=== PATIENT | male | born 1960 | race African-American/Black ===

== ENCOUNTER 2017-08-03 14:38 | Inpatient (IN) | payer OTHER ==
[2017-08-03 15:07] VITALS: BMI 21.6
--- NOTE | 2017-08-03 19:20 | HP ---
COWS - Scale Resting Pulse: 2= [place] 101-120 Sweatin= Chills/Flushing Restless Observation: 1= Difficult to Sit Still Pupil Size: 0= Normal to Room Light Bone or Joint Aches: 2= Severe Diffuse Aches Runny Nose/ Eye Tearin= Nasal Congestion GI Upset > 30mins: 2= Nausea/Diarrhea Tremor Observation: 2= Slight Tremor Visible Yawning Observation: 0= None Anxiety or Irritability: 2=Irritable/Anxious Goose Flesh Skin: 0=Smooth Skin COWS Score: 13 Admission [facility] Chief Complaint: WITHDRAWAL SX Allergies/Adverse Reactions: Allergies Allergy/AdvReac Type Severity Reaction Status Date / Time No Known Allergies Allergy Verified 06/12/17 18:44 History of Present Illness: 56 YEARS OLD MALE WITH LONG HISTORY OF HEROIN NICOTINE DEPENDENCE HAS DEPRESSION IS ADMITTED TO DETOX Exam Limitations: No Limitations - Ebola screening Have you traveled outside of the country in the last 21 days: No (N) Have you had contact with anyone from an Ebola affected area: No Have you been sick,other than usual withdrawal symptoms: No Do you have a fever: No - Review of Systems Constitutional: Loss of Appetite, Changes in sleep, Unintentional Wgt. Loss, Unexplained wgt Loss EENT: reports: No Symptoms Reported Respiratory: reports: No Symptoms reported Cardiac: reports: No Symptoms Reported GI: reports: Diarrhea, Nausea, Poor Appetite, Poor Fluid Intake, Indigestion, Abdominal cramping : reports: No Symptoms Reported Musculoskeletal: reports: Back Pain, Joint Pain, Muscle Pain, Neck Pain Integumentary: reports: Dryness Neuro: reports: Tremors Endocrine: reports: No Symptoms Reported Hematology: reports: No Symptoms Reported Psychiatric: reports: Judgement Intact, Orientated x3, Depressed Other Systems: Reviewed and Negative Patient History - Patient Medical History Hx Anemia: No Hx Asthma: No Hx Chronic Obstructive Pulmonary Disease (COPD): No Hx Cancer: No Hx Cardiac Disorders: No Hx Congestive Heart Failure: No Hx Hypertension: No Hx Hypercholesterolemia: No Hx Pacemaker: No HX Cerebrovascular Accident: No Hx Seizures: No Hx Dementia: No Hx Diabetes: No Hx Gastrointestinal Disorders: Yes Hx Liver Disease: No Hx Genitourinary Disorders: No Hx Sexually Transmitted Disorders: Yes (Gonorrhea 20 yrs ago, treated) Hx Renal Disease (ESRD): No Hx Thyroid Disease: No Hx Human Immunodeficiency Virus (HIV): No Hx Hepatitis C: Yes (Treated with Harvoni x 3 months) Hx Depression: Yes Hx Suicide Attempt: No Hx Bipolar Disorder: No Hx Schizophrenia: No - Patient Surgical History Past Surgical History: No Hx Neurologic Surgery: No Hx Cataract Extraction: No Hx Cardiac Surgery: No Hx Lung Surgery: No Hx Breast Surgery: No Hx Breast Biopsy: No Hx Abdominal Surgery: No Hx Appendectomy: No Hx Cholecystectomy: No Hx Genitourinary Surgery: No Hx Orthopedic Surgery: No - PPD History Previous Implant?: Yes Documented Results: Negative w/proof Implanted On Prior [facility] Admission?: Yes Date: 06/14/17 Results: 0mm PPD to be Administered?: No - Smoking Cessation Smoking history: Current every day smoker Have you smoked in the past 12 months: Yes Aproximately how many cigarettes per day: 15 Cigars Per Day: 0 Hx Chewing Tobacco Use: No Initiated information on smoking cessation: Yes 'Breaking Loose' booklet given: 08/03/17 - Substance & Tx. History Hx Alcohol Use: No Hx Substance Use: Yes Substance Use Type: Opiates Hx Substance Use Treatment: Yes (06/2017 [facility]) - Substances Abused Heroin Route: Inhalation Frequency: Daily Amount used: 10-15 bags Age of first use: 54 Date of Last Use: 08/03/17 Family Disease History - Family Disease History Family Disease History: [place]: Grandparent (Lung) Admission Physical Exam BHS - Vital Signs Vital Signs: Vital Signs - 24 hr 08/03/17 08/03/17 15:05 19:13 Temperature 97.8 F 97.9 F Pulse Rate 106 H 96 H Respiratory 18 18 Rate Blood Pressure 140/95 129/95 - Physical General Appearance: Yes: Appropriately Dressed, Mild Distress, Thin, Tremorous, Irritable, Sweating, Anxious HEENTM: Yes: Hearing grossly Normal, Normal ENT Inspection, Normocephalic, Normal Voice Respiratory: Yes: Chest Non-Tender, Lungs Clear, Normal Breath Sounds, No Respiratory Distress, No Accessory Muscle Use Neck: Yes: Supple, Trachea in good position Breast: Yes: Breasts Symetrical Cardiology: Yes: Regular Rhythm, S1, S2, Tachycardia Abdominal: Yes: Non Tender, Soft, Increased Bowel Sounds Genitourinary: Yes: Within Normal Limits Back: Yes: Normal Inspection Musculoskeletal: Yes: full range of Motion, Gait Steady, Back pain, Muscle Pain Extremities: Yes: Normal Inspection, Normal Range of Motion, Non-Tender, Tremors Neurological: Yes: Fully Oriented, Alert, Motor Strength 5/5, Normal Response, Depressed Affect Integumentary: Yes: Dry, Warm Lymphatic: Yes: Within Normal Limits - Diagnostic (1) Weight loss Current Visit: Yes Status: Acute (2) Nicotine dependence Current Visit: Yes Status: Acute Qualifiers: Nicotine product type: cigarettes Substance use status: in withdrawal Qualified Code(s): F17.213 - Nicotine dependence, cigarettes, with withdrawal (3) Depression (emotion) Current Visit: Yes Status: Suspected Qualifiers: Depression Type: dysthymia Qualified Code(s): F34.1 - Dysthymic disorder (4) Opioid dependence with withdrawal Current Visit: Yes Status: Acute (5) Hx of hepatitis C Current Visit: Yes Status: Resolved Cleared for Admission [facility] - Detox or Rehab [facility] Level of Care: Medically Managed Detox Regimen/Protocol: Methadone [facility] Breath Alcohol Content Breath Alcohol Content: 0 Urine Drug Screen - Control Is Test Valid: Yes - Results Drug Screen Negative: No Urine Drug Screen Results: OPI-Opiates, TCA-Tricyclic Antidepress
[2017-08-03] MEDS ORDERED: P-EPHED 60MG/TRIPROLIDI 2.5MG TABLET PO PRN (19:23)
[2017-08-03] MEDS ORDERED: guaiFENesin/D-METHORPHAN HB 10 ML UNIT-DOSE CUPS PO PRN (19:23)
[2017-08-03] MEDS ORDERED: LOPERAMIDE HCL 2 MG CAPSULE PO PRN (19:23)
[2017-08-03] MEDS ORDERED: METHADONE HCL 10 MG TABLET (FOR DETOX USE ONLY) PO ONE ×2 (19:23→23:00)
[2017-08-03] MEDS ORDERED: MAGNESIUM HYDROX 2400MG/30ML ORAL SUSPENSION 30 ML CUP PO PRN (19:23)
[2017-08-03] MEDS ORDERED: MENTHOL/PHENOL 1 EACH UD MM PRN (19:23)
[2017-08-03] MEDS ORDERED: MAG HYDROX/AL HYDROX/SIMETH 30 ML UNIT-DOSE CUP PO PRN (19:23)
[2017-08-03] MEDS ORDERED: MAGNESIUM CITRATE 300 ML BOTTLE PO PRN (19:23)
[2017-08-03] MEDS: diazePAM 5 MG TABLET PO PRN (19:52)
[2017-08-03 22:08] LABS: URINE APPEARANCE SLCLOUDY; URINE BILIRUBIN NEGATIVE (NEGATIVE); URINE BLOOD NEGATIVE (NEGATIVE); URINE COLOR AMBER; URINE GLUCOSE (UA) NEGATIVE (NEGATIVE); URINE KETONE 1+ (NEGATIVE); URINE LEUK ESTERASE NEGATIVE (NEGATIVE); URINE NITRITE NEGATIVE (NEGATIVE)
[2017-08-03] MEDS: RANITIDINE HCL 150 MG TABLET (FP) PO SCH (22:08)
[2017-08-03] MEDS: THIAMINE HCL 100 MG TABLET (FP) PO SCH (22:08)
[2017-08-03] MEDS: NICOTINE POLACRILEX 4 MG GUM BC PRN (22:09)
[2017-08-03] MEDS: MINERAL OIL/PETROLAT/WATER TOPICAL CREAM 113 GM JAR TP SCH (22:09)
[2017-08-03 22:48] LABS: URINE PROTEIN 1+ (NEGATIVE)
[2017-08-03 23:12] LABS: EPI CELLS RARE /HPF (FEW); URINE BACTERIA RARE /hpf (NONE SEEN); URINE MUCUS MANY
[2017-08-04] MEDS: NICOTINE POLACRILEX 4 MG GUM BC PRN ×4 (06:55→19:43)
[2017-08-04] MEDS ORDERED: METHADONE HCL 10 MG TABLET (FOR DETOX USE ONLY) PO ONE (10:00)
[2017-08-04 10:07] LABS: CHLORIDE 103 mmol/L (98-107); POTASSIUM 3.7 mmol/L (3.5-5.1); SODIUM 136 mmol/L (136-145)
[2017-08-04] MEDS: NICOTINE 21 MG/24 HOURS TOPICAL PATCH TD SCH (10:10)
[2017-08-04] MEDS: RANITIDINE HCL 150 MG TABLET (FP) PO SCH ×2 (10:10→22:17)
[2017-08-04] MEDS: PRENATAL VITAMINS W/ FOLIC ACID TABLET (FP) PO SCH (10:10)
[2017-08-04 10:24] LABS: ALBUMIN 3.4 g/dl (3.4-5.0); ALK PHOS 96 U/L (45-117); ANION GAP 7 (8-16); BILIRUBIN,TOTAL 0.4 mg/dL (0.2-1.0); BLOOD UREA NITROGEN 17 mg/dL (7-18); CALCIUM 8.5 mg/dL (8.5-10.1); CO2 26 mmol/L (21-32); CREATININE 0.8 mg/dL (0.7-1.3); GLUCOSE,RANDOM 118 mg/dL (74-106); SGOT/AST 14 U/L (15-37); SGPT/ALT 25 U/L (12-78); TOT PROT 7.1 g/dl (6.4-8.2)
--- NOTE | 2017-08-04 12:24 | CONSULT ---
[facility] Psychiatric Consult - Data Date of interview: 08/04/17 Admission source: [facility] Identifying data: Pt. is a 57 year old male, single, without kids, disabled, on SSD and SSI. This is patient's one of multiple admission to [facility]. Pt. admitted to for heroin dependence. Substance Abuse History: Heroin: First used: 56 Frequency: daily Amount: 1 bundle. Cigarette: Current every day smoker. 1 pack per day. Medical History: Hep C ( treated with Harvoni x3 months) Psychiatric History: Pt. reports h/o two psychiatric hospitalizations. Most recently hospitalized at a hospital in [place]. States he was diagnosed with severe depression. Pt. reports seeing a psychiatrist "on and off for a couple of years". Pt. has been prescribed the following medications: depakote, trazodone, wellbutrin, and mirtazapine. Pt. reports a h/o medication nonadherence. Claims he has not taken medications in months because they make him too sedated and has had "wet dreams" because of them. Pt. is requesting trazodone 50mg for insomnia. States his provider prescribed him 150mg of trazodone qhs and it made him feel sluggish in the morning. Pharmacy claims reviewed and verified. Pt. denies h/o suicide attempts. Pt. denies suicidal and homicidal ideation. Physical/Sexual Abuse/Trauma History: Denies. Additional Comment: Urine Drug Screen Results: OPI-Opiates, TCA-Tricyclic Antidepress Mental Status Exam - Mental Status Exam Alert and Oriented to: Time, Place, Person Cognitive Function: Good Patient Appearance: Well Groomed Mood: Hopeful Affect: Mood Congruent Patient Behavior: Talkative, Appropriate, Cooperative Speech Pattern: Clear, Appropriate Voice Loudness: Normal Thought Process: Goal Oriented Thought Disorder: Not Present Hallucinations: Denies Suicidal Ideation: Denies Homicidal Ideation: Denies Insight/Judgement: Poor Sleep: Poorly Appetite: Poor Muscle strength/Tone: Normal Gait/Station: Normal Psychiatric Findings - Problem List ([place] 1, 2,3) (1) Opioid dependence with withdrawal Current Visit: Yes Status: Acute (2) MDD (major depressive disorder) Current Visit: Yes Status: Chronic (3) Nicotine dependence Current Visit: Yes Status: Chronic Qualifiers: Nicotine product type: cigarettes Substance use status: in withdrawal Qualified Code(s): F17.213 - Nicotine dependence, cigarettes, with withdrawal (4) Insomnia Current Visit: Yes Status: Acute - Initial Treatment Plan Initial Treatment Plan: Psychoeducation provided. Detoxification in progress. Pharmacy claims reviewed. Trazodone 50mg qhs ordered for insomnia. Pt. reports favorable effect from taking trazodone. Benefits and side effects discussed ( priapism). Verbal consent given. Will continue to monitor.
--- NOTE | 2017-08-04 13:12 | EKG ---
Test Reason : Blood Pressure : / mmHG Vent. Rate : 075 BPM Atrial Rate : 075 BPM P-R Int : 140 ms QRS Dur : 078 ms QT Int : 364 ms P-R-T Axes : 069 067 047 degrees QTc Int : 406 ms NORMAL SINUS RHYTHM POSSIBLE LEFT ATRIAL ENLARGEMENT BORDERLINE ECG WHEN COMPARED WITH ECG OF 13-JUN-2017 07:01, VENT. RATE HAS INCREASED BY 26 BPM Confirmed by HAYDEN BRAUN MD ([id number]) on 08/04/2017 1:12:20 PM Referred By: DHAVAL GOOD Confirmed By:HAYDEN BRAUN MD
[2017-08-04] MEDS: diazePAM 5 MG TABLET PO PRN ×2 (13:48→22:16)
[2017-08-04 13:51] LABS: HEMOGLOBIN 12.7 GM/dL (11.7-16.9); MCHC 31.5 g/dl (32.0-35.9); MEAN PLT VOLUME 10.5 fl (7.5-11.1)
[2017-08-04 13:57] LABS: HEMATOCRIT 40.2 % (35.4-49); MCH 31.6 pg (25.7-33.7); MEAN CELL VOLUME 100.2 fl (80-96); PLATELET COUNT 237 K/MM3 (134-434); RBC 4.02 M/mm3 (4.00-5.60)
--- NOTE | 2017-08-04 16:06 | PN ---
BHS COWS - Scale Resting Pulse: 0= [place] 80 or Below Sweatin= Chills/Flushing Restless Observation: 3= Extraneous Movement Pupil Size: 0= Normal to Room Light Bone or Joint Aches: 2= Severe Diffuse Aches Runny Nose/ Eye Tearin= Runny Nose/Eyes GI Upset > 30mins: 1= Stomach Cramp Tremor Observation of Outstretched Hands: 2= Slight Tremor Visible Yawning Observation: 1= 1-2x During Session Anxiety or Irritability: 2=Irritable/Anxious Goose Flesh Skin: 0=Smooth Skin COWS Score: 14 BHS Progress Note (SOAP) Subjective: Sweating, anxious, interrupted sleep Objective: 08/04/17 16:04 Last Vital Signs Temp Pulse Resp BP Pulse Ox 97.3 F L 68 18 118/78 08/04/17 13:57 08/04/17 13:57 08/04/17 13:57 08/04/17 13:57 Laboratory Tests 08/03/17 08/04/17 08/04/17 21:50 07:30 07:30 WBC 11.0 H D RBC 4.02 Hgb 12.7 Hct 40.2 MCV 100.2 H MCH 31.6 MCHC 31.5 L RDW 13.0 Plt Count 237 MPV 10.5 D Sodium 136 Potassium 3.7 D Chloride 103 Carbon Dioxide 26 Anion Gap 7 L BUN 17 Creatinine 0.8 Creat Clearance w eGFR > 60 Random Glucose 118 H D Calcium 8.5 Total Bilirubin 0.4 AST 14 L D ALT 25 D Alkaline Phosphatase 96 D Total Protein 7.1 Albumin 3.4 Urine Color Aster Urine Appearance Slcloudy Urine pH 5.0 Ur Specific [place] 1.034 Urine Protein 1+ H Urine Glucose (UA) Negative Urine Ketones 1+ H Urine Blood Negative Urine Nitrite Negative Urine Bilirubin Negative Urine Urobilinogen 2.0 Ur Leukocyte Esterase Negative Urine WBC (Auto) 3 Urine RBC (Auto) 5 Ur Epithelial Cells Rare Urine Bacteria Rare Urine Mucus Many RPR Titer 08/04/17 07:30 WBC RBC Hgb Hct MCV MCH MCHC RDW Plt Count MPV Sodium Potassium Chloride Carbon Dioxide Anion Gap BUN Creatinine Creat Clearance w eGFR Random Glucose Calcium Total Bilirubin AST ALT Alkaline Phosphatase Total Protein Albumin Urine Color Urine Appearance Urine pH Ur Specific [place] Urine Protein Urine Glucose (UA) Urine Ketones Urine Blood Urine Nitrite Urine Bilirubin Urine Urobilinogen Ur Leukocyte Esterase Urine WBC (Auto) Urine RBC (Auto) Ur Epithelial Cells Urine Bacteria Urine Mucus RPR Titer Nonreactive Labs noted: abnormal UA Assessment: 08/04/17 16:05 Withdrawal symptoms Noted with abnormal UA Plan: Continue detox Abnormal UA: encouraged to drink lots of water, repeat UA
[2017-08-04] MEDS ORDERED: traZODone HCL 50 MG TABLET (FP) PO SCH (22:00)
[2017-08-04] MEDS: THIAMINE HCL 100 MG TABLET (FP) PO SCH (22:16)
[2017-08-04] MEDS: MINERAL OIL/PETROLAT/WATER TOPICAL CREAM 113 GM JAR TP SCH (23:07)
[2017-08-05] MEDS: NICOTINE POLACRILEX 4 MG GUM BC PRN ×4 (07:23→17:21)
[2017-08-05 09:50] LABS: BASO % 0.4 % (0-2.0); HEMATOCRIT 39.2 % (35.4-49); HEMOGLOBIN 12.5 GM/dL (11.7-16.9); MCH 31.7 pg (25.7-33.7); MCHC 31.8 g/dl (32.0-35.9); MEAN CELL VOLUME 99.6 fl (80-96); MEAN PLT VOLUME 9.7 fl (7.5-11.1); MONO % 13.7 % (3.8-10.2); NEUT % 37.9 % (42.8-82.8); PLATELET COUNT 231 K/MM3 (134-434); RBC 3.94 M/mm3 (4.00-5.60); WHITE BLOOD COUNT 6.5 K/mm3 (4.0-10.0)
[2017-08-05] MEDS ORDERED: METHADONE HCL 5 MG TABLET (FOR DETOX USE ONLY) PO ONE (10:00)
[2017-08-05] MEDS: NICOTINE 21 MG/24 HOURS TOPICAL PATCH TD SCH (10:33)
[2017-08-05] MEDS: PRENATAL VITAMINS W/ FOLIC ACID TABLET (FP) PO SCH (10:33)
[2017-08-05] MEDS: RANITIDINE HCL 150 MG TABLET (FP) PO SCH ×2 (10:33→23:33)
[2017-08-05] MEDS: diazePAM 5 MG TABLET PO PRN ×2 (12:42→17:20)
[2017-08-05 13:14] LABS: URINE APPEARANCE SLCLOUDY; URINE BILIRUBIN NEGATIVE (NEGATIVE); URINE BLOOD NEGATIVE (NEGATIVE); URINE COLOR YELLOW; URINE GLUCOSE (UA) NEGATIVE (NEGATIVE); URINE KETONE NEGATIVE (NEGATIVE); URINE LEUK ESTERASE NEGATIVE (NEGATIVE); URINE NITRITE NEGATIVE (NEGATIVE); URINE PROTEIN NEGATIVE (NEGATIVE); URINE UROBILINOGEN NEGATIVE mg/dL (0.2-1.0)
--- NOTE | 2017-08-05 15:01 | PN ---
BHS COWS - Scale Resting Pulse: 0= [place] 80 or Below Sweatin= Chills/Flushing Restless Observation: 3= Extraneous Movement Pupil Size: 0= Normal to Room Light Bone or Joint Aches: 2= Severe Diffuse Aches Runny Nose/ Eye Tearin= Runny Nose/Eyes GI Upset > 30mins: 1= Stomach Cramp Tremor Observation of Outstretched Hands: 2= Slight Tremor Visible Yawning Observation: 1= 1-2x During Session Anxiety or Irritability: 2=Irritable/Anxious Goose Flesh Skin: 0=Smooth Skin COWS Score: 14 S Progress Note (SOAP) Subjective: Anxious, sweats, chills, increased drowsiness from trazodone, patient requesting to have trazodone d/c because it makes him too drowsy. Objective: 08/05/17 14:59 Last Vital Signs Temp Pulse Resp BP Pulse Ox 97.9 F 66 18 127/77 08/05/17 14:42 08/05/17 14:42 08/05/17 14:42 08/05/17 14:42 Laboratory Tests 08/03/17 08/04/17 08/04/17 21:50 07:30 07:30 WBC 11.0 H D RBC 4.02 Hgb 12.7 Hct 40.2 MCV 100.2 H MCH 31.6 MCHC 31.5 L RDW 13.0 Plt Count 237 MPV 10.5 D Neutrophils % Lymphocytes % Monocytes % Eosinophils % Basophils % Sodium 136 Potassium 3.7 D Chloride 103 Carbon Dioxide 26 Anion Gap 7 L BUN 17 Creatinine 0.8 Creat Clearance w eGFR > 60 Random Glucose 118 H D Calcium 8.5 Total Bilirubin 0.4 AST 14 L D ALT 25 D Alkaline Phosphatase 96 D Total Protein 7.1 Albumin 3.4 Urine Color Aster Urine Appearance Slcloudy Urine pH 5.0 Ur Specific [place] 1.034 Urine Protein 1+ H Urine Glucose (UA) Negative Urine Ketones 1+ H Urine Blood Negative Urine Nitrite Negative Urine Bilirubin Negative Urine Urobilinogen 2.0 Ur Leukocyte Esterase Negative Urine WBC (Auto) 3 Urine RBC (Auto) 5 Ur Epithelial Cells Rare Urine Bacteria Rare Urine Mucus Many RPR Titer 08/04/17 08/05/17 08/05/17 07:30 07:30 12:20 WBC 6.5 D RBC 3.94 L Hgb 12.5 Hct 39.2 MCV 99.6 H MCH 31.7 MCHC 31.8 L RDW 13.0 Plt Count 231 MPV 9.7 Neutrophils % 37.9 L Lymphocytes % 43.0 H Monocytes % 13.7 H Eosinophils % 5.0 H Basophils % 0.4 Sodium Potassium Chloride Carbon Dioxide Anion Gap BUN Creatinine Creat Clearance w eGFR Random Glucose Calcium Total Bilirubin AST ALT Alkaline Phosphatase Total Protein Albumin Urine Color Yellow Urine Appearance Slcloudy Urine pH 5.0 Ur Specific [place] 1.018 Urine Protein Negative Urine Glucose (UA) Negative Urine Ketones Negative Urine Blood Negative Urine Nitrite Negative Urine Bilirubin Negative Urine Urobilinogen Negative Ur Leukocyte Esterase Urine WBC (Auto) Urine RBC (Auto) Ur Epithelial Cells Urine Bacteria Urine Mucus RPR Titer Nonreactive Labs noted Assessment: 08/05/17 15:00 Withdrawal symptoms Plan: Continue detox Encouraged to drink lots of water
--- NOTE | 2017-08-05 16:44 | PN ---
Psychiatric Progress Note Vital Signs: Vital Signs Period Temp Pulse Resp BP Sys/Pollock Pulse Ox Last 24 Hr 97.9 F-100.4 F 66-76 18-18 121-132/60-79 Date of Session: 08/05/17 Chief Complaint:: "The trazodone made me feel sluggish. I would like another sleep aid." HPI: Pt. admitted to for heroin dependence. ROS: Pt. alert and oriented. Pt. visible on unit. Current Medications: Active Medications Generic Name Dose Route Start Last Admin Trade Name Freq PRN Reason Stop Dose Admin Acetaminophen 650 mg 08/03/17 19:23 Tylenol - PO Q4H PRN FEVER OR PAIN Al Hydroxide/Mg Hydroxide 30 ml 08/03/17 19:23 Mylanta Oral Suspension - PO Q6H PRN DYSPEPSIA Diazepam 10 mg 08/03/17 19:23 08/05/17 12:42 Valium - PO 08/06/17 19:22 10 mg Q4H PRN Administration WITHDRAWAL(CONT SUBST) Eucalyptus/Menthol/Phenol/Sorbitol 1 each 08/03/17 19:23 Cepastat Lozenge - MM Q4H PRN SORE THROAT Guaifenesin 10 ml 08/03/17 19:23 Robitussin Dm - PO Q6H PRN COUGH Loperamide HCl 4 mg 08/03/17 19:23 Imodium - PO Q6H PRN DIARRHEA Magnesium Citrate 300 ml 08/03/17 19:23 Citroma - PO Q48H PRN CONSTIPATION Magnesium Hydroxide 30 ml 08/03/17 19:23 Milk Of Magnesia - PO DAILY PRN CONSTIPATION Methadone HCl 5 mg 08/08/17 06:00 Dolophine - PO 08/08/17 06:01 ONCE@0600 ONE Methadone HCl 15 mg 08/06/17 10:00 Dolophine - PO 08/06/17 10:01 ONCE ONE Methadone HCl 10 mg 08/07/17 10:00 Dolophine - PO 08/07/17 10:01 ONCE ONE Multi-Ingredient Lotion 1 applic 08/03/17 22:00 08/04/17 23:07 Eucerin (Small Jar) - TP Not Given HS MARYJANE Nicotine 21 mg 08/04/17 10:00 08/05/17 10:33 Nicoderm Patch - TD Not Given DAILY MARYJANE Nicotine Polacrilex 4 mg 08/03/17 19:23 08/05/17 12:20 Nicorette Gum - BC 4 mg Q2H PRN Administration NICOTINE REPLACEMENT RX Multivit/Folic Acid/Iron 1 tab 08/04/17 10:00 08/05/17 10:33 Vitamins (Sjr) - PO 1 tab DAILY MARYJANE Administration Pseudoephedrine/Triprolidine 1 combo 08/03/17 19:23 Actifed - PO TID PRN NASAL CONGESTION Ranitidine HCl 150 mg 08/03/17 22:00 08/05/17 10:33 Zantac - PO 150 mg BID MARYJANE Administration Thiamine HCl 100 mg 08/03/17 22:00 08/04/17 22:16 Vitamin B1 - PO 100 mg HS MARYJANE Administration Trazodone HCl 50 mg 08/04/17 22:00 08/04/17 22:16 Desyrel - PO 50 mg HS MARYJANE Administration Medication(s) Change(s): Will discontinue trazodone 50mg for insomnia and order ambien 5mg qhs for insomnia. Current Side Effect: No Lab tests ordered: No Lab tests reviewed: Yes Provider note:: Installation Supervisor approached patient concerning psychiatric reconsultation. Patient requesting film writer to discontinue trazodone due to feeling sluggish this morning. Sleep hygiene and psychoeducation provided. Pt. receptive to feedback. Pt. requesting ambien for insomnia. States he has taken it in the past and experienced improved sleep. Will order Ambien 5mg qhs PRN ordered for insomnia. Total face to face time:: 25 Mental Status Exam - Mental Status Exam Alert and Oriented to: Time, Place, Person Cognitive Function: Good Patient Appearance: Well Groomed Mood: Euthymic Affect: Mood Congruent Patient Behavior: Appropriate, Cooperative Speech Pattern: Appropriate Voice Loudness: Normal Thought Process: Goal Oriented Thought Disorder: Not Present Hallucinations: Denies Suicidal Ideation: Denies Homicidal Ideation: Denies Insight/Judgement: Poor Sleep: Poorly Appetite: Fair Muscle strength/Tone: Normal Gait/Station: Normal Psychiatric Treatment Plan - Problem List (1) Opioid dependence with withdrawal Current Visit: Yes (2) MDD (major depressive disorder) Current Visit: Yes (3) Nicotine dependence Current Visit: Yes Qualifiers: Nicotine product type: cigarettes Substance use status: in withdrawal Qualified Code(s): F17.213 - Nicotine dependence, cigarettes, with withdrawal (4) Insomnia Current Visit: Yes
[2017-08-05] MEDS: ACETAMINOPHEN 325 MG TABLET (FP) PO PRN (20:33)
[2017-08-05] MEDS ORDERED: ZOLPIDEM TARTRATE 5 MG TABLET PO PRN (22:00)
[2017-08-05] MEDS: MINERAL OIL/PETROLAT/WATER TOPICAL CREAM 113 GM JAR TP SCH (23:32)
[2017-08-05] MEDS: THIAMINE HCL 100 MG TABLET (FP) PO SCH (23:33)
--- NOTE | 2017-08-05 23:36 | PN ---
S Progress Note Note: PT. ASSESSED ON THE UNIT. HE REPORTS HE FALL AT 700; ROLLED OF THE BED AND HIT HIS LEFT ELBOW. DENIES HEAD INJURY. SLIGHT SWELLING NOTED, TENDERNESS ON PALPATION. SKIN INTACT, NO BRUISING NOTED AND FROM. PLAN: IBU PRN ICE PRN FALL PROTOCOL 2 INITIATED
[2017-08-06] MEDS: NICOTINE POLACRILEX 4 MG GUM BC PRN ×4 (06:01→20:19)
[2017-08-06] MEDS: ACETAMINOPHEN 325 MG TABLET (FP) PO PRN (07:36)
[2017-08-06] MEDS ORDERED: METHADONE HCL 5 MG TABLET (FOR DETOX USE ONLY) PO ONE (10:00)
[2017-08-06] MEDS: PRENATAL VITAMINS W/ FOLIC ACID TABLET (FP) PO SCH (10:14)
[2017-08-06] MEDS: RANITIDINE HCL 150 MG TABLET (FP) PO SCH ×2 (10:14→22:33)
[2017-08-06] MEDS: NICOTINE 21 MG/24 HOURS TOPICAL PATCH TD SCH (10:16)
[2017-08-06] MEDS: diazePAM 5 MG TABLET PO PRN ×2 (12:22→18:05)
--- NOTE | 2017-08-06 16:12 | PN ---
BHS Progress Note (SOAP) Subjective: withdrawal sx Sweats, sleeping problems Objective: 08/06/17 16:11 Vital Signs Temperature 100.6 F H 08/06/17 13:50 Pulse Rate 69 08/06/17 13:50 Respiratory Rate 18 08/06/17 13:50 Blood Pressure 131/77 08/06/17 13:50 O2 Sat by Pulse Oximetry (%) Laboratory Last Values WBC 6.5 K/mm3 (4.0-10.0) D 08/05/17 07:30 RBC 3.94 M/mm3 (4.00-5.60) L 08/05/17 07:30 Hgb 12.5 GM/dL (11.7-16.9) 08/05/17 07:30 Hct 39.2 % (35.4-49) 08/05/17 07:30 MCV 99.6 fl (80-96) H 08/05/17 07:30 MCH 31.7 pg (25.7-33.7) 08/05/17 07:30 MCHC 31.8 g/dl (32.0-35.9) L 08/05/17 07:30 RDW 13.0 % (11.9-15.9) 08/05/17 07:30 Plt Count 231 K/MM3 (134-434) 08/05/17 07:30 MPV 9.7 fl (7.5-11.1) 08/05/17 07:30 Neutrophils % 37.9 % (42.8-82.8) L 08/05/17 07:30 Lymphocytes % 43.0 % (8-40) H 08/05/17 07:30 Monocytes % 13.7 % (3.8-10.2) H 08/05/17 07:30 Eosinophils % 5.0 % (0-4.5) H 08/05/17 07:30 Basophils % 0.4 % (0-2.0) 08/05/17 07:30 Sodium 136 mmol/L (136-145) 08/04/17 07:30 Potassium 3.7 mmol/L (3.5-5.1) D 08/04/17 07:30 Chloride 103 mmol/L (98-107) 08/04/17 07:30 Carbon Dioxide 26 mmol/L (21-32) 08/04/17 07:30 Anion Gap 7 (8-16) L 08/04/17 07:30 BUN 17 mg/dL (7-18) 08/04/17 07:30 Creatinine 0.8 mg/dL (0.7-1.3) 08/04/17 07:30 Creat Clearance w eGFR > 60 (>60) 08/04/17 07:30 Random Glucose 118 mg/dL (74-106) H D 08/04/17 07:30 Calcium 8.5 mg/dL (8.5-10.1) 08/04/17 07:30 Total Bilirubin 0.4 mg/dL (0.2-1.0) 08/04/17 07:30 AST 14 U/L (15-37) L D 08/04/17 07:30 ALT 25 U/L (12-78) D 08/04/17 07:30 Alkaline Phosphatase 96 U/L (45-117) D 08/04/17 07:30 Total Protein 7.1 g/dl (6.4-8.2) 08/04/17 07:30 Albumin 3.4 g/dl (3.4-5.0) 08/04/17 07:30 Urine Color Yellow 08/05/17 12:20 Urine Appearance Slcloudy 08/05/17 12:20 Urine pH 5.0 (5.0-8.0) 08/05/17 12:20 Ur Specific [place] 1.018 (1.001-1.035) 08/05/17 12:20 Urine Protein Negative (NEGATIVE) 08/05/17 12:20 Urine Glucose (UA) Negative (NEGATIVE) 08/05/17 12:20 Urine Ketones Negative (NEGATIVE) 08/05/17 12:20 Urine Blood Negative (NEGATIVE) 08/05/17 12:20 Urine Nitrite Negative (NEGATIVE) 08/05/17 12:20 Urine Bilirubin Negative (NEGATIVE) 08/05/17 12:20 Urine Urobilinogen Negative mg/dL (0.2-1.0) 08/05/17 12:20 Ur Leukocyte Esterase Negative (NEGATIVE) 08/05/17 12:20 Urine WBC (Auto) 3 /hpf (3-5) 08/03/17 21:50 Urine RBC (Auto) 5 /hpf (0-3) 08/03/17 21:50 Ur Epithelial Cells Rare /HPF (FEW) 08/03/17 21:50 Urine Bacteria Rare /hpf (NONE SEEN) 08/03/17 21:50 Urine Mucus Many 08/03/17 21:50 RPR Titer Nonreactive (NONREACTIVE) 08/04/17 07:30 Labs noted High temp noted. Tylenol PRN order Assessment: 08/06/17 16:14 withdrawal sx Plan: continue detox Monitor temp Increase po fluid
[2017-08-06] MEDS: THIAMINE HCL 100 MG TABLET (FP) PO SCH (22:33)
[2017-08-06] MEDS: MINERAL OIL/PETROLAT/WATER TOPICAL CREAM 113 GM JAR TP SCH (22:33)
[2017-08-07] MEDS: NICOTINE POLACRILEX 4 MG GUM BC PRN ×4 (05:10→19:47)
[2017-08-07] MEDS: ACETAMINOPHEN 325 MG TABLET (FP) PO PRN (07:34)
[2017-08-07] MEDS ORDERED: METHADONE HCL 10 MG TABLET (FOR DETOX USE ONLY) PO ONE (10:00)
[2017-08-07] MEDS: PRENATAL VITAMINS W/ FOLIC ACID TABLET (FP) PO SCH (10:10)
[2017-08-07] MEDS: RANITIDINE HCL 150 MG TABLET (FP) PO SCH ×2 (10:10→22:39)
[2017-08-07] MEDS: NICOTINE 21 MG/24 HOURS TOPICAL PATCH TD SCH (11:43)
[2017-08-07] MEDS ORDERED: hydrOXYzine PAMOATE 25 MG CAPSULE (FP) PO PRN (12:52)
--- NOTE | 2017-08-07 13:00 | PN ---
BHS Progress Note (SOAP) Subjective: withdrawal sx sleepin problems, diarrhea Objective: 08/07/17 12:58 Vital Signs Temperature 98.1 F 08/07/17 09:45 Pulse Rate 55 L 08/07/17 09:45 Respiratory Rate 18 08/07/17 09:45 Blood Pressure 120/76 08/07/17 09:45 O2 Sat by Pulse Oximetry (%) Laboratory Last Values WBC 6.5 K/mm3 (4.0-10.0) D 08/05/17 07:30 RBC 3.94 M/mm3 (4.00-5.60) L 08/05/17 07:30 Hgb 12.5 GM/dL (11.7-16.9) 08/05/17 07:30 Hct 39.2 % (35.4-49) 08/05/17 07:30 MCV 99.6 fl (80-96) H 08/05/17 07:30 MCH 31.7 pg (25.7-33.7) 08/05/17 07:30 MCHC 31.8 g/dl (32.0-35.9) L 08/05/17 07:30 RDW 13.0 % (11.9-15.9) 08/05/17 07:30 Plt Count 231 K/MM3 (134-434) 08/05/17 07:30 MPV 9.7 fl (7.5-11.1) 08/05/17 07:30 Neutrophils % 37.9 % (42.8-82.8) L 08/05/17 07:30 Lymphocytes % 43.0 % (8-40) H 08/05/17 07:30 Monocytes % 13.7 % (3.8-10.2) H 08/05/17 07:30 Eosinophils % 5.0 % (0-4.5) H 08/05/17 07:30 Basophils % 0.4 % (0-2.0) 08/05/17 07:30 Sodium 136 mmol/L (136-145) 08/04/17 07:30 Potassium 3.7 mmol/L (3.5-5.1) D 08/04/17 07:30 Chloride 103 mmol/L (98-107) 08/04/17 07:30 Carbon Dioxide 26 mmol/L (21-32) 08/04/17 07:30 Anion Gap 7 (8-16) L 08/04/17 07:30 BUN 17 mg/dL (7-18) 08/04/17 07:30 Creatinine 0.8 mg/dL (0.7-1.3) 08/04/17 07:30 Creat Clearance w eGFR > 60 (>60) 08/04/17 07:30 Random Glucose 118 mg/dL (74-106) H D 08/04/17 07:30 Calcium 8.5 mg/dL (8.5-10.1) 08/04/17 07:30 Total Bilirubin 0.4 mg/dL (0.2-1.0) 08/04/17 07:30 AST 14 U/L (15-37) L D 08/04/17 07:30 ALT 25 U/L (12-78) D 08/04/17 07:30 Alkaline Phosphatase 96 U/L (45-117) D 08/04/17 07:30 Total Protein 7.1 g/dl (6.4-8.2) 08/04/17 07:30 Albumin 3.4 g/dl (3.4-5.0) 08/04/17 07:30 Urine Color Yellow 08/05/17 12:20 Urine Appearance Slcloudy 08/05/17 12:20 Urine pH 5.0 (5.0-8.0) 08/05/17 12:20 Ur Specific [place] 1.018 (1.001-1.035) 08/05/17 12:20 Urine Protein Negative (NEGATIVE) 08/05/17 12:20 Urine Glucose (UA) Negative (NEGATIVE) 08/05/17 12:20 Urine Ketones Negative (NEGATIVE) 08/05/17 12:20 Urine Blood Negative (NEGATIVE) 08/05/17 12:20 Urine Nitrite Negative (NEGATIVE) 08/05/17 12:20 Urine Bilirubin Negative (NEGATIVE) 08/05/17 12:20 Urine Urobilinogen Negative mg/dL (0.2-1.0) 08/05/17 12:20 Ur Leukocyte Esterase Negative (NEGATIVE) 08/05/17 12:20 Urine WBC (Auto) 3 /hpf (3-5) 08/03/17 21:50 Urine RBC (Auto) 5 /hpf (0-3) 08/03/17 21:50 Ur Epithelial Cells Rare /HPF (FEW) 08/03/17 21:50 Urine Bacteria Rare /hpf (NONE SEEN) 08/03/17 21:50 Urine Mucus Many 08/03/17 21:50 RPR Titer Nonreactive (NONREACTIVE) 08/04/17 07:30 labs noted Assessment: 08/07/17 12:59 withdrawal sx No acute distress ambulating steadily Plan: continue detox
[2017-08-07] MEDS: THIAMINE HCL 100 MG TABLET (FP) PO SCH (22:39)
[2017-08-07] MEDS: MINERAL OIL/PETROLAT/WATER TOPICAL CREAM 113 GM JAR TP SCH (22:39)
[2017-08-08] MEDS: hydrOXYzine PAMOATE 25 MG CAPSULE (FP) PO PRN ×3 (03:28→21:39)
[2017-08-08] MEDS ORDERED: METHADONE HCL 5 MG TABLET (FOR DETOX USE ONLY) PO ONE (06:00)
[2017-08-08] MEDS: NICOTINE POLACRILEX 4 MG GUM BC PRN ×5 (06:07→21:39)
[2017-08-08] MEDS: RANITIDINE HCL 150 MG TABLET (FP) PO SCH ×2 (10:07→21:39)
[2017-08-08] MEDS: PRENATAL VITAMINS W/ FOLIC ACID TABLET (FP) PO SCH (10:07)
--- NOTE | 2017-08-08 10:10 | DS ---
[facility] Detox Discharge Summary Admission Date: 08/03/17 Discharge Date: 08/09/17 - History Present History: Opioid Dependence Additional Comments: TRANSFER TO [facility] REHAB FOR FURTHER LEVEL OF CARE Pertinent Past History: HEPATITIS C NICOTINE DEPENDENCE MAJOR DEPRESSIVE DISORDER - Physical Exam Results Vital Signs: Vital Signs Temperature 98.1 F 08/08/17 06:00 Pulse Rate 66 08/08/17 06:00 Respiratory Rate 18 08/08/17 06:00 Blood Pressure 138/76 08/08/17 06:00 O2 Sat by Pulse Oximetry (%) Pertinent Admission Physical Exam Findings: WITHDRAWAL SYMPTOM - Treatment Hospital Course: Detox Protocol Followed, Detoxed Safely, Responded well, Discharged Condition Good, Rehab Referral Accepted Patient has Accepted a Rehab Referral to: [facility] - Medication Discharge Medications: Ambulatory Orders NK [No Known Home Medication] 06/12/17 - Diagnosis (1) Opioid dependence with withdrawal Current Visit: Yes Status: Acute (2) Hx of hepatitis C Current Visit: Yes Status: Chronic (3) MDD (major depressive disorder) Current Visit: Yes Status: Chronic (4) Nicotine dependence Current Visit: Yes Status: Chronic Qualifiers: Nicotine product type: cigarettes Substance use status: in withdrawal Qualified Code(s): F17.213 - Nicotine dependence, cigarettes, with withdrawal (5) Low back pain Current Visit: No Status: Chronic Qualifiers: Chronicity: unspecified Back pain laterality: unspecified Sciatica presence: unspecified whether sciatica present Qualified Code(s): M54.5 - Low back pain - AMA Did Patient Leave Against Medical Advice: No
--- NOTE | 2017-08-08 10:13 | PN ---
S Progress Note (SOAP) Subjective: ALERT,NO COMPLAINT Objective: 08/08/17 10:11 Vital Signs Temperature 98.1 F 08/08/17 06:00 Pulse Rate 66 08/08/17 06:00 Respiratory Rate 18 08/08/17 06:00 Blood Pressure 138/76 08/08/17 06:00 O2 Sat by Pulse Oximetry (%) Assessment: 08/08/17 10:11 STABLE,NO WITHDRAWAL SYMPTOM Plan: TRANSFER TO REHAB [facility] FOR CONTINUE TREATMENT FOR FURTHER LEVEL OF CARE
[2017-08-08] MEDS: NICOTINE 21 MG/24 HOURS TOPICAL PATCH TD SCH (10:19)
[2017-08-08] MEDS: MINERAL OIL/PETROLAT/WATER TOPICAL CREAM 113 GM JAR TP SCH (21:39)
[2017-08-08] MEDS: THIAMINE HCL 100 MG TABLET (FP) PO SCH (21:39)
[2017-08-09] MEDS: NICOTINE POLACRILEX 4 MG GUM BC PRN ×5 (02:53→21:51)
[2017-08-09] MEDS: hydrOXYzine PAMOATE 25 MG CAPSULE (FP) PO PRN ×3 (06:06→16:49)
[2017-08-09] MEDS: PRENATAL VITAMINS W/ FOLIC ACID TABLET (FP) PO SCH (09:42)
[2017-08-09] MEDS: RANITIDINE HCL 150 MG TABLET (FP) PO SCH ×2 (09:42→21:50)
[2017-08-09] MEDS: NICOTINE 21 MG/24 HOURS TOPICAL PATCH TD SCH (10:20)
--- NOTE | 2017-08-09 11:42 | HP ---
Psychiatrist Admission - Data Date of interview: 08/09/17 Admission source: [facility] Identifying data: This is the first 5N inpatient rehabilitation admission for this 57 year old single AA male, uunemployed and supported on SSD/SSI, no children he is domiciled. Medical History: Hep C (treated with Harvoni), herniated disc in lower back, smokes cigarettes 15-15 daily. Psychiatric History: Patient reports was diagnosed with depression, reports 2 psychiatric hospitalizations at [facility] in [place], most recently last year for depressed mood, suicidal thoughts and auditory hallucinations, treated with trazodone, wellbutrin, depakote, remeron, he reports was on an off medications, he has not taking medications in months, but while at [facility] detox he was put on ambien, patient reports he sleeps with interruptions and willing to restart remeron. Physical/Sexual Abuse/Trauma History: Denies history of sexual, physical and verbal abuse. Vital Signs: Vital Signs - 24 hr 08/09/17 08/09/17 08/09/17 00:30 03:30 06:52 Temperature 98.2 F Pulse Rate 86 Respiratory 18 16 16 Rate Blood Pressure 125/76 Allergies/Adverse Reactions: Allergies Allergy/AdvReac Type Severity Reaction Status Date / Time No Known Allergies Allergy Verified 06/12/17 18:44 Date of last physical exam: 08/04/17 Concur with the findings of this exam: Yes - Substance Abuse/Tx History Hx Alcohol Use: No Hx Substance Use: Yes Substance Use Type: Heroin (10-15 bags daily) Hx Substance Use Treatment: Yes Mental Status Exam - Mental Status Exam Alert and Oriented to: Time, Place, Person Cognitive Function: Good Patient Appearance: Well Groomed Mood: Sad Affect: Appropriate, Mood Congruent, Normal Range Patient Behavior: Appropriate, Cooperative Speech Pattern: Clear, Appropriate Voice Loudness: Normal Thought Process: Intact, Goal Oriented Thought Disorder: Not Present Hallucinations: Denies Suicidal Ideation: Denies Homicidal Ideation: Denies Insight/Judgement: Fair Sleep: Poorly, Difficulty falling asleep Appetite: Fair Muscle strength/Tone: Normal Gait/Station: Normal Psychiatric Findings - Problem List ([place] 1, 2,3) (1) Opioid dependence Current Visit: Yes Status: Acute (2) MDD (major depressive disorder) Current Visit: Yes Status: Chronic (3) Nicotine dependence Current Visit: Yes Status: Chronic Qualifiers: Nicotine product type: cigarettes Substance use status: in withdrawal Qualified Code(s): F17.213 - Nicotine dependence, cigarettes, with withdrawal (4) Low back pain Current Visit: No Status: Chronic Qualifiers: Chronicity: unspecified Back pain laterality: unspecified Sciatica presence: unspecified whether sciatica present Qualified Code(s): M54.5 - Low back pain - Initial Treatment Plan Initial Treatment Plan: Will restart Remeron 15 mg po hs, monitor progress as needed.
[2017-08-09] MEDS: THIAMINE HCL 100 MG TABLET (FP) PO SCH (21:51)
[2017-08-09] MEDS: MINERAL OIL/PETROLAT/WATER TOPICAL CREAM 113 GM JAR TP SCH (21:51)
[2017-08-09] MEDS: MIRTAZAPINE 15 MG TABLET (FP) PO SCH (21:51)
[2017-08-10] MEDS: hydrOXYzine PAMOATE 25 MG CAPSULE (FP) PO PRN ×2 (03:07→09:59)
[2017-08-10] MEDS: NICOTINE POLACRILEX 4 MG GUM BC PRN ×5 (06:08→21:47)
[2017-08-10] MEDS: PRENATAL VITAMINS W/ FOLIC ACID TABLET (FP) PO SCH (09:57)
[2017-08-10] MEDS: NICOTINE 21 MG/24 HOURS TOPICAL PATCH TD SCH (09:57)
[2017-08-10] MEDS: RANITIDINE HCL 150 MG TABLET (FP) PO SCH ×2 (09:57→21:46)
[2017-08-10] MEDS: MIRTAZAPINE 15 MG TABLET (FP) PO SCH (21:46)
[2017-08-10] MEDS: THIAMINE HCL 100 MG TABLET (FP) PO SCH (21:46)
[2017-08-10] MEDS: MINERAL OIL/PETROLAT/WATER TOPICAL CREAM 113 GM JAR TP SCH (21:47)
[2017-08-11] MEDS: NICOTINE POLACRILEX 4 MG GUM BC PRN ×6 (06:47→22:06)
[2017-08-11] MEDS: NICOTINE 21 MG/24 HOURS TOPICAL PATCH TD SCH (09:59)
[2017-08-11] MEDS: PRENATAL VITAMINS W/ FOLIC ACID TABLET (FP) PO SCH (09:59)
[2017-08-11] MEDS: RANITIDINE HCL 150 MG TABLET (FP) PO SCH ×2 (09:59→22:02)
--- NOTE | 2017-08-11 13:29 | PN ---
[facility] Progress Note (SOAP) Subjective: c/o protracted withdrwal after opioid detox with methadone, does nto want mat Objective: 08/11/17 13:26 Vital Signs - 24 hr 08/11/17 08/11/17 08/11/17 00:30 03:30 07:12 Temperature 98.3 F Pulse Rate 83 Respiratory 16 16 18 Rate Blood Pressure 123/75 Laboratory Tests 08/03/17 08/04/17 08/04/17 21:50 07:30 07:30 WBC 11.0 H D RBC 4.02 Hgb 12.7 Hct 40.2 MCV 100.2 H MCH 31.6 MCHC 31.5 L RDW 13.0 Plt Count 237 MPV 10.5 D Neutrophils % Lymphocytes % Monocytes % Eosinophils % Basophils % Sodium 136 Potassium 3.7 D Chloride 103 Carbon Dioxide 26 Anion Gap 7 L BUN 17 Creatinine 0.8 Creat Clearance w eGFR > 60 Random Glucose 118 H D Calcium 8.5 Total Bilirubin 0.4 AST 14 L D ALT 25 D Alkaline Phosphatase 96 D Total Protein 7.1 Albumin 3.4 Urine Color Aster Urine Appearance Slcloudy Urine pH 5.0 Ur Specific [place] 1.034 Urine Protein 1+ H Urine Glucose (UA) Negative Urine Ketones 1+ H Urine Blood Negative Urine Nitrite Negative Urine Bilirubin Negative Urine Urobilinogen 2.0 Ur Leukocyte Esterase Negative Urine WBC (Auto) 3 Urine RBC (Auto) 5 Ur Epithelial Cells Rare Urine Bacteria Rare Urine Mucus Many RPR Titer 08/04/17 08/05/17 08/05/17 07:30 07:30 12:20 WBC 6.5 D RBC 3.94 L Hgb 12.5 Hct 39.2 MCV 99.6 H MCH 31.7 MCHC 31.8 L RDW 13.0 Plt Count 231 MPV 9.7 Neutrophils % 37.9 L Lymphocytes % 43.0 H Monocytes % 13.7 H Eosinophils % 5.0 H Basophils % 0.4 Sodium Potassium Chloride Carbon Dioxide Anion Gap BUN Creatinine Creat Clearance w eGFR Random Glucose Calcium Total Bilirubin AST ALT Alkaline Phosphatase Total Protein Albumin Urine Color Yellow Urine Appearance Slcloudy Urine pH 5.0 Ur Specific [place] 1.018 Urine Protein Negative Urine Glucose (UA) Negative Urine Ketones Negative Urine Blood Negative Urine Nitrite Negative Urine Bilirubin Negative Urine Urobilinogen Negative Ur Leukocyte Esterase Negative Urine WBC (Auto) Urine RBC (Auto) Ur Epithelial Cells Urine Bacteria Urine Mucus RPR Titer Nonreactive Assessment: 08/11/17 13:27 protracted opioid withdrawal - symptomatic relief only at this time, counseled re need for medication asssited treatment.
[2017-08-11] MEDS ORDERED: BUPRENORPHINE/NALOXONE 2 MG/0.5 MG FILM PACKET SL ONE (14:05)
[2017-08-11] MEDS ORDERED: PANTOPRAZOLE 40 MG TABLET (FP) PO SCH (14:06)
[2017-08-11] MEDS: CYCLOBENZAPRINE HCL 5 MG TABLET PO SCH ×2 (14:13→22:02)
[2017-08-11] MEDS: GABAPENTIN 100 MG CAPSULE (FP) PO SCH ×2 (14:13→22:02)
[2017-08-11] MEDS: cloNIDine HCL 0.1 MG TABLET PO SCH ×2 (14:13→22:02)
[2017-08-11] MEDS: NAPROXEN 500 MG TABLET (FP) PO SCH ×2 (14:14→22:03)
--- NOTE | 2017-08-11 14:37 | PN ---
Psychiatric Progress Note Vital Signs: Vital Signs Period Temp Pulse Resp BP Sys/Pollock Pulse Ox Last 24 Hr 98.3 F 83 16-18 123/75 Date of Session: 08/11/17 Chief Complaint:: "I need to talk" HPI: Patient is addressing opioid dependence,Nicotine dependence comorbid. MDD (major depressive disorder). ROS: lower back pain. Current Medications: Active Medications Generic Name Dose Route Start Last Admin Trade Name Freq PRN Reason Stop Dose Admin Acetaminophen 650 mg 08/03/17 19:23 08/07/17 07:34 Tylenol - PO 650 mg Q4H PRN Administration FEVER OR PAIN Al Hydroxide/Mg Hydroxide 30 ml 08/03/17 19:23 Mylanta Oral Suspension - PO Q6H PRN DYSPEPSIA Clonidine 0.1 mg 08/11/17 14:07 08/11/17 14:13 Catapres - PO 0.1 mg BID MARYJANE Administration Cyclobenzaprine HCl 5 mg 08/11/17 14:00 08/11/17 14:13 Cyclobenzaprine Hcl PO 5 mg TID MARYJANE Administration Eucalyptus/Menthol/Phenol/Sorbitol 1 each 08/03/17 19:23 Cepastat Lozenge - MM Q4H PRN SORE THROAT Gabapentin 100 mg 08/11/17 14:00 08/11/17 14:13 Neurontin - PO 100 mg TID MARYJANE Administration Guaifenesin 10 ml 08/03/17 19:23 Robitussin Dm - PO Q6H PRN COUGH Hydroxyzine Pamoate 25 mg 08/07/17 16:34 08/10/17 09:59 Vistaril - PO 25 mg Q4H PRN Administration ANXIETY Loperamide HCl 4 mg 08/03/17 19:23 Imodium - PO Q6H PRN DIARRHEA Magnesium Citrate 300 ml 08/03/17 19:23 Citroma - PO Q48H PRN CONSTIPATION Magnesium Hydroxide 30 ml 08/03/17 19:23 Milk Of Magnesia - PO DAILY PRN CONSTIPATION Mirtazapine 15 mg 08/09/17 22:00 08/10/17 21:46 Remeron - PO 15 mg HS MARYJANE Administration Multi-Ingredient Lotion 1 applic 08/03/17 22:00 08/10/17 21:47 Eucerin (Small Jar) - TP Not Given HS [facility] Naproxen 500 mg 08/11/17 14:09 08/11/17 14:14 Naprosyn - PO 500 mg BID MARYJANE Administration Nicotine 21 mg 08/04/17 10:00 08/11/17 09:59 Nicoderm Patch - TD 21 mg DAILY MARYJANE Administration Nicotine Polacrilex 4 mg 08/03/17 19:23 08/11/17 12:28 Nicorette Gum - BC 4 mg Q2H PRN Administration NICOTINE REPLACEMENT RX Multivit/Folic Acid/Iron 1 tab 08/04/17 10:00 08/11/17 09:59 Vitamins (Sjr) - PO 1 tab DAILY MARYJANE Administration Pseudoephedrine/Triprolidine 1 combo 08/03/17 19:23 Actifed - PO TID PRN NASAL CONGESTION Ranitidine HCl 150 mg 08/03/17 22:00 08/11/17 09:59 Zantac - PO 150 mg BID MARYJANE Administration Thiamine HCl 100 mg 08/03/17 22:00 08/10/17 21:46 Vitamin B1 - PO 100 mg HS MARYJANE Administration Current Side Effect: No Lab tests ordered: No Lab tests reviewed: Yes Provider note:: Patient reports he has a "wet dreams" and questioned if it side- effects from remeron, patient reports this happends next day after he stops using heroin, states with methadone he not experiencing this, psychoeducations regarding withdrawal symptoms from heroin provided. Discussed side-effects and benefits of remeron, patient verbailzed understanding, supportive therapy provided, continue to monitor progress. Total face to face time:: 35 Mental Status Exam - Mental Status Exam Alert and Oriented to: Time, Place, Person Cognitive Function: Good Patient Appearance: Well Groomed Mood: Anxious Affect: Appropriate, Mood Congruent Patient Behavior: Appropriate, Cooperative Speech Pattern: Clear, Appropriate Voice Loudness: Normal Thought Process: Intact, Goal Oriented Thought Disorder: Not Present Hallucinations: Denies Suicidal Ideation: Denies Homicidal Ideation: Denies Insight/Judgement: Fair Sleep: Fair Appetite: Fair Muscle strength/Tone: Normal Gait/Station: Normal Psychiatric Treatment Plan - Problem List (1) Opioid dependence Current Visit: Yes (2) MDD (major depressive disorder) Current Visit: Yes (3) Nicotine dependence Current Visit: Yes Qualifiers: Nicotine product type: cigarettes Substance use status: in withdrawal Qualified Code(s): F17.213 - Nicotine dependence, cigarettes, with withdrawal (4) Low back pain Current Visit: No Qualifiers: Chronicity: unspecified Back pain laterality: unspecified Sciatica presence: unspecified whether sciatica present Qualified Code(s): M54.5 - Low back pain
[2017-08-11] MEDS: THIAMINE HCL 100 MG TABLET (FP) PO SCH (22:02)
[2017-08-11] MEDS: MIRTAZAPINE 15 MG TABLET (FP) PO SCH (22:03)
[2017-08-11] MEDS: MINERAL OIL/PETROLAT/WATER TOPICAL CREAM 113 GM JAR TP SCH (22:46)
[2017-08-12] MEDS: GABAPENTIN 100 MG CAPSULE (FP) PO SCH ×3 (06:40→21:55)
[2017-08-12] MEDS: CYCLOBENZAPRINE HCL 5 MG TABLET PO SCH ×3 (06:40→21:55)
[2017-08-12] MEDS: NICOTINE POLACRILEX 4 MG GUM BC PRN ×5 (06:40→21:56)
[2017-08-12] MEDS: RANITIDINE HCL 150 MG TABLET (FP) PO SCH ×2 (10:33→21:55)
[2017-08-12] MEDS: PRENATAL VITAMINS W/ FOLIC ACID TABLET (FP) PO SCH (10:33)
[2017-08-12] MEDS: NICOTINE 21 MG/24 HOURS TOPICAL PATCH TD SCH (10:33)
[2017-08-12] MEDS: NAPROXEN 500 MG TABLET (FP) PO SCH ×2 (10:33→21:55)
[2017-08-12] MEDS: cloNIDine HCL 0.1 MG TABLET PO SCH ×2 (10:33→21:55)
--- NOTE | 2017-08-12 11:06 | PN ---
S Progress Note (SOAP) Subjective: pain much improved on current medications, would like to continue suboxone Objective: 08/12/17 11:04 Vital Signs - 24 hr 08/11/17 08/12/17 08/12/17 21:00 00:30 03:30 Temperature Pulse Rate 77 Respiratory 18 16 16 Rate Blood Pressure 117/75 08/12/17 07:22 Temperature 98.0 F Pulse Rate 63 Respiratory 16 Rate Blood Pressure 115/71 Laboratory Tests 08/03/17 08/04/17 08/04/17 21:50 07:30 07:30 WBC 11.0 H D RBC 4.02 Hgb 12.7 Hct 40.2 MCV 100.2 H MCH 31.6 MCHC 31.5 L RDW 13.0 Plt Count 237 MPV 10.5 D Neutrophils % Lymphocytes % Monocytes % Eosinophils % Basophils % Sodium 136 Potassium 3.7 D Chloride 103 Carbon Dioxide 26 Anion Gap 7 L BUN 17 Creatinine 0.8 Creat Clearance w eGFR > 60 Random Glucose 118 H D Calcium 8.5 Total Bilirubin 0.4 AST 14 L D ALT 25 D Alkaline Phosphatase 96 D Total Protein 7.1 Albumin 3.4 Urine Color Aster Urine Appearance Slcloudy Urine pH 5.0 Ur Specific [place] 1.034 Urine Protein 1+ H Urine Glucose (UA) Negative Urine Ketones 1+ H Urine Blood Negative Urine Nitrite Negative Urine Bilirubin Negative Urine Urobilinogen 2.0 Ur Leukocyte Esterase Negative Urine WBC (Auto) 3 Urine RBC (Auto) 5 Ur Epithelial Cells Rare Urine Bacteria Rare Urine Mucus Many RPR Titer 08/04/17 08/05/17 08/05/17 07:30 07:30 12:20 WBC 6.5 D RBC 3.94 L Hgb 12.5 Hct 39.2 MCV 99.6 H MCH 31.7 MCHC 31.8 L RDW 13.0 Plt Count 231 MPV 9.7 Neutrophils % 37.9 L Lymphocytes % 43.0 H Monocytes % 13.7 H Eosinophils % 5.0 H Basophils % 0.4 Sodium Potassium Chloride Carbon Dioxide Anion Gap BUN Creatinine Creat Clearance w eGFR Random Glucose Calcium Total Bilirubin AST ALT Alkaline Phosphatase Total Protein Albumin Urine Color Yellow Urine Appearance Slcloudy Urine pH 5.0 Ur Specific [place] 1.018 Urine Protein Negative Urine Glucose (UA) Negative Urine Ketones Negative Urine Blood Negative Urine Nitrite Negative Urine Bilirubin Negative Urine Urobilinogen Negative Ur Leukocyte Esterase Negative Urine WBC (Auto) Urine RBC (Auto) Ur Epithelial Cells Urine Bacteria Urine Mucus RPR Titer Nonreactive Assessment: 08/12/17 11:05 cont MAT w daily suboxone 4mg, orderd, to find suboxone program in [place] for d/c . do not give naprosyn when he leaves but cont other pain meds. discussedwith patient
[2017-08-12] MEDS: BUPRENORPHINE/NALOXONE 2 MG/0.5 MG FILM PACKET SL SCH (12:19)
[2017-08-12] MEDS: THIAMINE HCL 100 MG TABLET (FP) PO SCH (21:55)
[2017-08-12] MEDS: MIRTAZAPINE 15 MG TABLET (FP) PO SCH (21:55)
[2017-08-12] MEDS: MINERAL OIL/PETROLAT/WATER TOPICAL CREAM 113 GM JAR TP SCH (22:04)
[2017-08-13] MEDS: CYCLOBENZAPRINE HCL 5 MG TABLET PO SCH ×3 (06:46→21:45)
[2017-08-13] MEDS: GABAPENTIN 100 MG CAPSULE (FP) PO SCH ×3 (06:46→21:45)
[2017-08-13] MEDS: NICOTINE POLACRILEX 4 MG GUM BC PRN ×5 (06:47→21:46)
[2017-08-13] MEDS: NAPROXEN 500 MG TABLET (FP) PO SCH ×2 (09:53→21:45)
[2017-08-13] MEDS: cloNIDine HCL 0.1 MG TABLET PO SCH ×2 (09:53→21:45)
[2017-08-13] MEDS: PRENATAL VITAMINS W/ FOLIC ACID TABLET (FP) PO SCH (09:53)
[2017-08-13] MEDS: RANITIDINE HCL 150 MG TABLET (FP) PO SCH ×2 (09:53→21:45)
[2017-08-13] MEDS: BUPRENORPHINE/NALOXONE 2 MG/0.5 MG FILM PACKET SL SCH (09:54)
[2017-08-13] MEDS: NICOTINE 21 MG/24 HOURS TOPICAL PATCH TD SCH (09:54)
[2017-08-13] MEDS: MIRTAZAPINE 15 MG TABLET (FP) PO SCH (21:45)
[2017-08-13] MEDS: THIAMINE HCL 100 MG TABLET (FP) PO SCH (21:45)
[2017-08-13] MEDS: MINERAL OIL/PETROLAT/WATER TOPICAL CREAM 113 GM JAR TP SCH (21:46)
[2017-08-14] MEDS: NICOTINE POLACRILEX 4 MG GUM BC PRN ×4 (07:00→21:44)
[2017-08-14] MEDS: CYCLOBENZAPRINE HCL 5 MG TABLET PO SCH ×3 (07:00→21:43)
[2017-08-14] MEDS: GABAPENTIN 100 MG CAPSULE (FP) PO SCH ×3 (07:00→21:43)
[2017-08-14] MEDS: PRENATAL VITAMINS W/ FOLIC ACID TABLET (FP) PO SCH (10:15)
[2017-08-14] MEDS: NICOTINE 21 MG/24 HOURS TOPICAL PATCH TD SCH (10:16)
[2017-08-14] MEDS: RANITIDINE HCL 150 MG TABLET (FP) PO SCH ×2 (10:16→21:43)
[2017-08-14] MEDS: NAPROXEN 500 MG TABLET (FP) PO SCH ×2 (10:16→21:43)
[2017-08-14] MEDS: BUPRENORPHINE/NALOXONE 2 MG/0.5 MG FILM PACKET SL SCH (10:17)
[2017-08-14] MEDS: cloNIDine HCL 0.1 MG TABLET PO SCH ×2 (10:17→21:43)
[2017-08-14] MEDS: THIAMINE HCL 100 MG TABLET (FP) PO SCH (21:42)
[2017-08-14] MEDS: MIRTAZAPINE 15 MG TABLET (FP) PO SCH (21:43)
[2017-08-14] MEDS: MINERAL OIL/PETROLAT/WATER TOPICAL CREAM 113 GM JAR TP SCH (21:43)
[2017-08-15] MEDS: CYCLOBENZAPRINE HCL 5 MG TABLET PO SCH ×3 (06:30→21:59)
[2017-08-15] MEDS: GABAPENTIN 100 MG CAPSULE (FP) PO SCH (06:30)
[2017-08-15] MEDS: NICOTINE POLACRILEX 4 MG GUM BC PRN ×2 (06:31→10:23)
[2017-08-15] MEDS: PRENATAL VITAMINS W/ FOLIC ACID TABLET (FP) PO SCH (10:22)
[2017-08-15] MEDS: cloNIDine HCL 0.1 MG TABLET PO SCH ×2 (10:22→21:59)
[2017-08-15] MEDS: NAPROXEN 500 MG TABLET (FP) PO SCH (10:22)
[2017-08-15] MEDS: NICOTINE 21 MG/24 HOURS TOPICAL PATCH TD SCH (10:23)
[2017-08-15] MEDS: RANITIDINE HCL 150 MG TABLET (FP) PO SCH ×2 (10:23→21:59)
[2017-08-15] MEDS: BUPRENORPHINE/NALOXONE 2 MG/0.5 MG FILM PACKET SL SCH (10:23)
[2017-08-15] MEDS ORDERED: BUPRENORPHINE/NALOXONE 2 MG/0.5 MG FILM PACKET SL SCH (12:27)
--- NOTE | 2017-08-15 12:32 | PN ---
[facility] Progress Note (SOAP) Subjective: c/o nausea and indigestion osn suboxone and naprosyn - would llike to d/c naproxenand taper suboxone Objective: 08/15/17 12:29 Vital Signs - 8 hr 08/15/17 07:30 Temperature 98.1 F Pulse Rate 68 Respiratory 16 Rate Blood Pressure 124/76 Laboratory Tests 08/03/17 08/04/17 08/04/17 21:50 07:30 07:30 WBC 11.0 H D RBC 4.02 Hgb 12.7 Hct 40.2 MCV 100.2 H MCH 31.6 MCHC 31.5 L RDW 13.0 Plt Count 237 MPV 10.5 D Neutrophils % Lymphocytes % Monocytes % Eosinophils % Basophils % Sodium 136 Potassium 3.7 D Chloride 103 Carbon Dioxide 26 Anion Gap 7 L BUN 17 Creatinine 0.8 Creat Clearance w eGFR > 60 Random Glucose 118 H D Calcium 8.5 Total Bilirubin 0.4 AST 14 L D ALT 25 D Alkaline Phosphatase 96 D Total Protein 7.1 Albumin 3.4 Urine Color Aster Urine Appearance Slcloudy Urine pH 5.0 Ur Specific [place] 1.034 Urine Protein 1+ H Urine Glucose (UA) Negative Urine Ketones 1+ H Urine Blood Negative Urine Nitrite Negative Urine Bilirubin Negative Urine Urobilinogen 2.0 Ur Leukocyte Esterase Negative Urine WBC (Auto) 3 Urine RBC (Auto) 5 Ur Epithelial Cells Rare Urine Bacteria Rare Urine Mucus Many RPR Titer 08/04/17 08/05/17 08/05/17 07:30 07:30 12:20 WBC 6.5 D RBC 3.94 L Hgb 12.5 Hct 39.2 MCV 99.6 H MCH 31.7 MCHC 31.8 L RDW 13.0 Plt Count 231 MPV 9.7 Neutrophils % 37.9 L Lymphocytes % 43.0 H Monocytes % 13.7 H Eosinophils % 5.0 H Basophils % 0.4 Sodium Potassium Chloride Carbon Dioxide Anion Gap BUN Creatinine Creat Clearance w eGFR Random Glucose Calcium Total Bilirubin AST ALT Alkaline Phosphatase Total Protein Albumin Urine Color Yellow Urine Appearance Slcloudy Urine pH 5.0 Ur Specific [place] 1.018 Urine Protein Negative Urine Glucose (UA) Negative Urine Ketones Negative Urine Blood Negative Urine Nitrite Negative Urine Bilirubin Negative Urine Urobilinogen Negative Ur Leukocyte Esterase Negative Urine WBC (Auto) Urine RBC (Auto) Ur Epithelial Cells Urine Bacteria Urine Mucus RPR Titer Nonreactive Assessment: 08/15/17 12:31 d/c naproxen, decrease suboxone, patietn adn nursing aware, will increase neurontin for [pain to 300mg tid.
[2017-08-15] MEDS: GABAPENTIN 300 MG CAPSULE (FP) PO SCH ×2 (15:15→21:59)
[2017-08-15] MEDS: MIRTAZAPINE 15 MG TABLET (FP) PO SCH (21:59)
[2017-08-15] MEDS: THIAMINE HCL 100 MG TABLET (FP) PO SCH (21:59)
[2017-08-15] MEDS: MINERAL OIL/PETROLAT/WATER TOPICAL CREAM 113 GM JAR TP SCH (22:00)
[2017-08-16] MEDS: CYCLOBENZAPRINE HCL 5 MG TABLET PO SCH ×3 (06:00→22:00)
[2017-08-16] MEDS: GABAPENTIN 300 MG CAPSULE (FP) PO SCH ×3 (06:00→22:00)
[2017-08-16] MEDS: NICOTINE 21 MG/24 HOURS TOPICAL PATCH TD SCH (10:21)
[2017-08-16] MEDS: RANITIDINE HCL 150 MG TABLET (FP) PO SCH ×2 (10:21→22:00)
[2017-08-16] MEDS: cloNIDine HCL 0.1 MG TABLET PO SCH ×2 (10:21→22:00)
[2017-08-16] MEDS: PRENATAL VITAMINS W/ FOLIC ACID TABLET (FP) PO SCH (10:22)
[2017-08-16] MEDS ORDERED: ONDANSETRON *ODT* 4 MG TABLET SL PRN (13:27)
--- NOTE | 2017-08-16 13:30 | PN ---
S Progress Note (SOAP) Subjective: dos not want to stay on suboxone requesting to be weaned off, c/o nausea and diarrrhea now improved Objective: 08/16/17 13:30 Vital Signs - 24 hr 08/15/17 08/15/17 08/16/17 21:00 23:16 00:30 Temperature Pulse Rate 88 119 H Respiratory 18 Rate Blood Pressure 154/88 122/100 08/16/17 08/16/17 08/16/17 03:30 06:55 10:00 Temperature 98.9 F Pulse Rate 109 H 108 H Respiratory 18 18 Rate Blood Pressure 122/65 123/83 Laboratory Tests 08/03/17 08/04/17 08/04/17 21:50 07:30 07:30 WBC 11.0 H D RBC 4.02 Hgb 12.7 Hct 40.2 MCV 100.2 H MCH 31.6 MCHC 31.5 L RDW 13.0 Plt Count 237 MPV 10.5 D Neutrophils % Lymphocytes % Monocytes % Eosinophils % Basophils % Sodium 136 Potassium 3.7 D Chloride 103 Carbon Dioxide 26 Anion Gap 7 L BUN 17 Creatinine 0.8 Creat Clearance w eGFR > 60 Random Glucose 118 H D Calcium 8.5 Total Bilirubin 0.4 AST 14 L D ALT 25 D Alkaline Phosphatase 96 D Total Protein 7.1 Albumin 3.4 Urine Color Aster Urine Appearance Slcloudy Urine pH 5.0 Ur Specific [place] 1.034 Urine Protein 1+ H Urine Glucose (UA) Negative Urine Ketones 1+ H Urine Blood Negative Urine Nitrite Negative Urine Bilirubin Negative Urine Urobilinogen 2.0 Ur Leukocyte Esterase Negative Urine WBC (Auto) 3 Urine RBC (Auto) 5 Ur Epithelial Cells Rare Urine Bacteria Rare Urine Mucus Many RPR Titer 08/04/17 08/05/17 08/05/17 07:30 07:30 12:20 WBC 6.5 D RBC 3.94 L Hgb 12.5 Hct 39.2 MCV 99.6 H MCH 31.7 MCHC 31.8 L RDW 13.0 Plt Count 231 MPV 9.7 Neutrophils % 37.9 L Lymphocytes % 43.0 H Monocytes % 13.7 H Eosinophils % 5.0 H Basophils % 0.4 Sodium Potassium Chloride Carbon Dioxide Anion Gap BUN Creatinine Creat Clearance w eGFR Random Glucose Calcium Total Bilirubin AST ALT Alkaline Phosphatase Total Protein Albumin Urine Color Yellow Urine Appearance Slcloudy Urine pH 5.0 Ur Specific [place] 1.018 Urine Protein Negative Urine Glucose (UA) Negative Urine Ketones Negative Urine Blood Negative Urine Nitrite Negative Urine Bilirubin Negative Urine Urobilinogen Negative Ur Leukocyte Esterase Negative Urine WBC (Auto) Urine RBC (Auto) Ur Epithelial Cells Urine Bacteria Urine Mucus RPR Titer Nonreactive Assessment: 08/16/17 13:30 d/c suboxone, zofran x1 dose now and prn, imodium prn.
[2017-08-16] MEDS ORDERED: ONDANSETRON *ODT* 4 MG TABLET SL ONE (13:59)
[2017-08-16] MEDS: THIAMINE HCL 100 MG TABLET (FP) PO SCH (22:00)
[2017-08-16] MEDS: MIRTAZAPINE 15 MG TABLET (FP) PO SCH (22:00)
[2017-08-16] MEDS: MINERAL OIL/PETROLAT/WATER TOPICAL CREAM 113 GM JAR TP SCH (22:00)
[2017-08-17] MEDS: GABAPENTIN 300 MG CAPSULE (FP) PO SCH ×3 (07:47→21:55)
[2017-08-17] MEDS: CYCLOBENZAPRINE HCL 5 MG TABLET PO SCH ×3 (07:47→21:55)
[2017-08-17] MEDS: RANITIDINE HCL 150 MG TABLET (FP) PO SCH ×2 (10:18→21:55)
[2017-08-17] MEDS: NICOTINE 21 MG/24 HOURS TOPICAL PATCH TD SCH (10:18)
[2017-08-17] MEDS: cloNIDine HCL 0.1 MG TABLET PO SCH ×2 (10:18→21:55)
[2017-08-17] MEDS: NICOTINE POLACRILEX 4 MG GUM BC PRN ×2 (10:19→15:27)
[2017-08-17] MEDS: PRENATAL VITAMINS W/ FOLIC ACID TABLET (FP) PO SCH (10:19)
[2017-08-17] MEDS: THIAMINE HCL 100 MG TABLET (FP) PO SCH (21:55)
[2017-08-17] MEDS: MIRTAZAPINE 15 MG TABLET (FP) PO SCH (21:55)
[2017-08-17] MEDS: MINERAL OIL/PETROLAT/WATER TOPICAL CREAM 113 GM JAR TP SCH (21:56)
[2017-08-18] MEDS: CYCLOBENZAPRINE HCL 5 MG TABLET PO SCH ×3 (05:58→21:41)
[2017-08-18] MEDS: GABAPENTIN 300 MG CAPSULE (FP) PO SCH ×3 (05:58→21:40)
[2017-08-18] MEDS: PRENATAL VITAMINS W/ FOLIC ACID TABLET (FP) PO SCH (10:27)
[2017-08-18] MEDS: NICOTINE 21 MG/24 HOURS TOPICAL PATCH TD SCH (10:28)
[2017-08-18] MEDS: cloNIDine HCL 0.1 MG TABLET PO SCH ×2 (10:28→21:41)
[2017-08-18] MEDS: RANITIDINE HCL 150 MG TABLET (FP) PO SCH ×2 (10:28→21:40)
[2017-08-18] MEDS: THIAMINE HCL 100 MG TABLET (FP) PO SCH (21:40)
[2017-08-18] MEDS: MIRTAZAPINE 15 MG TABLET (FP) PO SCH (21:40)
[2017-08-18] MEDS: MINERAL OIL/PETROLAT/WATER TOPICAL CREAM 113 GM JAR TP SCH (21:41)
[2017-08-19] MEDS: CYCLOBENZAPRINE HCL 5 MG TABLET PO SCH ×3 (06:03→22:08)
[2017-08-19] MEDS: GABAPENTIN 300 MG CAPSULE (FP) PO SCH ×3 (06:03→22:08)
[2017-08-19] MEDS: NICOTINE POLACRILEX 4 MG GUM BC PRN ×3 (06:52→17:13)
[2017-08-19] MEDS: RANITIDINE HCL 150 MG TABLET (FP) PO SCH ×2 (10:19→22:08)
[2017-08-19] MEDS: NICOTINE 21 MG/24 HOURS TOPICAL PATCH TD SCH (10:19)
[2017-08-19] MEDS: PRENATAL VITAMINS W/ FOLIC ACID TABLET (FP) PO SCH (10:19)
[2017-08-19] MEDS: cloNIDine HCL 0.1 MG TABLET PO SCH ×2 (10:20→22:08)
[2017-08-19] MEDS: THIAMINE HCL 100 MG TABLET (FP) PO SCH (22:08)
[2017-08-19] MEDS: MINERAL OIL/PETROLAT/WATER TOPICAL CREAM 113 GM JAR TP SCH (22:09)
[2017-08-19] MEDS: MIRTAZAPINE 15 MG TABLET (FP) PO SCH (22:09)
[2017-08-20] MEDS: CYCLOBENZAPRINE HCL 5 MG TABLET PO SCH ×3 (05:54→21:46)
[2017-08-20] MEDS: GABAPENTIN 300 MG CAPSULE (FP) PO SCH ×3 (05:54→21:46)
[2017-08-20] MEDS: NICOTINE POLACRILEX 4 MG GUM BC PRN ×4 (05:55→17:27)
[2017-08-20] MEDS: NICOTINE 21 MG/24 HOURS TOPICAL PATCH TD SCH (10:09)
[2017-08-20] MEDS: PRENATAL VITAMINS W/ FOLIC ACID TABLET (FP) PO SCH (10:09)
[2017-08-20] MEDS: RANITIDINE HCL 150 MG TABLET (FP) PO SCH ×2 (10:09→21:46)
[2017-08-20] MEDS: cloNIDine HCL 0.1 MG TABLET PO SCH ×2 (10:09→21:46)
[2017-08-20] MEDS: MIRTAZAPINE 15 MG TABLET (FP) PO SCH (21:46)
[2017-08-20] MEDS: THIAMINE HCL 100 MG TABLET (FP) PO SCH (21:46)
[2017-08-20] MEDS: MINERAL OIL/PETROLAT/WATER TOPICAL CREAM 113 GM JAR TP SCH (21:47)
[2017-08-21] MEDS: GABAPENTIN 300 MG CAPSULE (FP) PO SCH ×3 (06:01→21:46)
[2017-08-21] MEDS: CYCLOBENZAPRINE HCL 5 MG TABLET PO SCH ×3 (06:01→21:46)
[2017-08-21] MEDS: NICOTINE POLACRILEX 4 MG GUM BC PRN ×4 (08:23→21:47)
[2017-08-21] MEDS: cloNIDine HCL 0.1 MG TABLET PO SCH ×2 (09:54→21:46)
[2017-08-21] MEDS: PRENATAL VITAMINS W/ FOLIC ACID TABLET (FP) PO SCH (09:54)
[2017-08-21] MEDS: NICOTINE 21 MG/24 HOURS TOPICAL PATCH TD SCH (09:54)
[2017-08-21] MEDS: RANITIDINE HCL 150 MG TABLET (FP) PO SCH ×2 (09:54→21:46)
[2017-08-21] MEDS: MIRTAZAPINE 15 MG TABLET (FP) PO SCH (21:46)
[2017-08-21] MEDS: THIAMINE HCL 100 MG TABLET (FP) PO SCH (21:52)
[2017-08-21] MEDS: MINERAL OIL/PETROLAT/WATER TOPICAL CREAM 113 GM JAR TP SCH (21:52)
[2017-08-22] MEDS: NICOTINE POLACRILEX 4 MG GUM BC PRN ×4 (06:10→20:20)
[2017-08-22] MEDS: GABAPENTIN 300 MG CAPSULE (FP) PO SCH ×3 (06:10→21:38)
[2017-08-22] MEDS: CYCLOBENZAPRINE HCL 5 MG TABLET PO SCH ×3 (06:10→21:38)
[2017-08-22] MEDS: cloNIDine HCL 0.1 MG TABLET PO SCH ×2 (10:21→21:38)
[2017-08-22] MEDS: NICOTINE 21 MG/24 HOURS TOPICAL PATCH TD SCH (10:21)
[2017-08-22] MEDS: PRENATAL VITAMINS W/ FOLIC ACID TABLET (FP) PO SCH (10:21)
[2017-08-22] MEDS: RANITIDINE HCL 150 MG TABLET (FP) PO SCH ×2 (10:22→21:38)
[2017-08-22] MEDS: THIAMINE HCL 100 MG TABLET (FP) PO SCH (21:38)
[2017-08-22] MEDS: MIRTAZAPINE 15 MG TABLET (FP) PO SCH (21:38)
[2017-08-22] MEDS: MINERAL OIL/PETROLAT/WATER TOPICAL CREAM 113 GM JAR TP SCH (21:39)
[2017-08-23] MEDS: CYCLOBENZAPRINE HCL 5 MG TABLET PO SCH ×3 (06:49→22:06)
[2017-08-23] MEDS: GABAPENTIN 300 MG CAPSULE (FP) PO SCH ×3 (06:50→22:06)
[2017-08-23] MEDS: NICOTINE POLACRILEX 4 MG GUM BC PRN ×5 (07:21→22:13)
[2017-08-23] MEDS: PRENATAL VITAMINS W/ FOLIC ACID TABLET (FP) PO SCH (10:39)
[2017-08-23] MEDS: RANITIDINE HCL 150 MG TABLET (FP) PO SCH ×2 (10:39→22:06)
[2017-08-23] MEDS: cloNIDine HCL 0.1 MG TABLET PO SCH ×2 (10:39→22:06)
[2017-08-23] MEDS: NICOTINE 21 MG/24 HOURS TOPICAL PATCH TD SCH (10:40)
[2017-08-23] MEDS: MIRTAZAPINE 15 MG TABLET (FP) PO SCH (22:06)
[2017-08-23] MEDS: THIAMINE HCL 100 MG TABLET (FP) PO SCH (22:06)
[2017-08-23] MEDS: MINERAL OIL/PETROLAT/WATER TOPICAL CREAM 113 GM JAR TP SCH (22:07)
[2017-08-24] MEDS: CYCLOBENZAPRINE HCL 5 MG TABLET PO SCH ×3 (05:46→21:50)
[2017-08-24] MEDS: GABAPENTIN 300 MG CAPSULE (FP) PO SCH ×3 (05:46→21:50)
[2017-08-24] MEDS: NICOTINE POLACRILEX 4 MG GUM BC PRN ×5 (05:55→21:50)
[2017-08-24] MEDS: NICOTINE 21 MG/24 HOURS TOPICAL PATCH TD SCH (10:05)
[2017-08-24] MEDS: RANITIDINE HCL 150 MG TABLET (FP) PO SCH ×2 (10:05→21:50)
[2017-08-24] MEDS: PRENATAL VITAMINS W/ FOLIC ACID TABLET (FP) PO SCH (10:06)
[2017-08-24] MEDS: cloNIDine HCL 0.1 MG TABLET PO SCH ×2 (10:07→21:50)
[2017-08-24] MEDS: MIRTAZAPINE 15 MG TABLET (FP) PO SCH (21:50)
[2017-08-24] MEDS: THIAMINE HCL 100 MG TABLET (FP) PO SCH (21:50)
[2017-08-24] MEDS: MINERAL OIL/PETROLAT/WATER TOPICAL CREAM 113 GM JAR TP SCH (22:10)
[2017-08-25] MEDS: CYCLOBENZAPRINE HCL 5 MG TABLET PO SCH ×3 (06:50→21:52)
[2017-08-25] MEDS: NICOTINE POLACRILEX 4 MG GUM BC PRN ×5 (06:50→21:53)
[2017-08-25] MEDS: GABAPENTIN 300 MG CAPSULE (FP) PO SCH ×3 (06:50→21:52)
[2017-08-25] MEDS: NICOTINE 21 MG/24 HOURS TOPICAL PATCH TD SCH (10:31)
[2017-08-25] MEDS: cloNIDine HCL 0.1 MG TABLET PO SCH ×2 (10:31→21:52)
[2017-08-25] MEDS: RANITIDINE HCL 150 MG TABLET (FP) PO SCH ×2 (10:32→21:52)
[2017-08-25] MEDS: PRENATAL VITAMINS W/ FOLIC ACID TABLET (FP) PO SCH (10:32)
[2017-08-25] MEDS: THIAMINE HCL 100 MG TABLET (FP) PO SCH (21:52)
[2017-08-25] MEDS: MIRTAZAPINE 15 MG TABLET (FP) PO SCH (21:52)
[2017-08-25] MEDS: MINERAL OIL/PETROLAT/WATER TOPICAL CREAM 113 GM JAR TP SCH (21:53)
[2017-08-26] MEDS: CYCLOBENZAPRINE HCL 5 MG TABLET PO SCH ×3 (06:32→21:43)
[2017-08-26] MEDS: GABAPENTIN 300 MG CAPSULE (FP) PO SCH ×3 (06:33→21:43)
[2017-08-26] MEDS: NICOTINE POLACRILEX 4 MG GUM BC PRN ×5 (07:20→21:44)
[2017-08-26] MEDS: cloNIDine HCL 0.1 MG TABLET PO SCH ×2 (10:24→21:43)
[2017-08-26] MEDS: RANITIDINE HCL 150 MG TABLET (FP) PO SCH ×2 (10:24→21:43)
[2017-08-26] MEDS: PRENATAL VITAMINS W/ FOLIC ACID TABLET (FP) PO SCH (10:24)
[2017-08-26] MEDS: NICOTINE 21 MG/24 HOURS TOPICAL PATCH TD SCH (10:24)
[2017-08-26] MEDS: THIAMINE HCL 100 MG TABLET (FP) PO SCH (21:43)
[2017-08-26] MEDS: MIRTAZAPINE 15 MG TABLET (FP) PO SCH (21:43)
[2017-08-26] MEDS: MINERAL OIL/PETROLAT/WATER TOPICAL CREAM 113 GM JAR TP SCH (21:44)
[2017-08-26] MEDS: hydrOXYzine PAMOATE 25 MG CAPSULE (FP) PO PRN (23:05)
[2017-08-27] MEDS: NICOTINE POLACRILEX 4 MG GUM BC PRN ×6 (06:44→21:33)
[2017-08-27] MEDS: CYCLOBENZAPRINE HCL 5 MG TABLET PO SCH ×3 (06:44→21:32)
[2017-08-27] MEDS: GABAPENTIN 300 MG CAPSULE (FP) PO SCH ×3 (06:44→21:32)
[2017-08-27] MEDS: PRENATAL VITAMINS W/ FOLIC ACID TABLET (FP) PO SCH (10:33)
[2017-08-27] MEDS: cloNIDine HCL 0.1 MG TABLET PO SCH ×2 (10:33→21:32)
[2017-08-27] MEDS: NICOTINE 21 MG/24 HOURS TOPICAL PATCH TD SCH (10:33)
[2017-08-27] MEDS: RANITIDINE HCL 150 MG TABLET (FP) PO SCH ×2 (10:33→21:32)
[2017-08-27] MEDS: hydrOXYzine PAMOATE 25 MG CAPSULE (FP) PO PRN (18:48)
[2017-08-27] MEDS: MINERAL OIL/PETROLAT/WATER TOPICAL CREAM 113 GM JAR TP SCH (21:32)
[2017-08-27] MEDS: THIAMINE HCL 100 MG TABLET (FP) PO SCH (21:32)
[2017-08-27] MEDS: MIRTAZAPINE 15 MG TABLET (FP) PO SCH (21:32)
[2017-08-28] MEDS: CYCLOBENZAPRINE HCL 5 MG TABLET PO SCH ×3 (06:42→21:33)
[2017-08-28] MEDS: GABAPENTIN 300 MG CAPSULE (FP) PO SCH ×3 (06:42→21:33)
[2017-08-28] MEDS: NICOTINE POLACRILEX 4 MG GUM BC PRN ×3 (06:43→19:39)
[2017-08-28] MEDS: PRENATAL VITAMINS W/ FOLIC ACID TABLET (FP) PO SCH (10:31)
[2017-08-28] MEDS: cloNIDine HCL 0.1 MG TABLET PO SCH ×2 (10:31→21:33)
[2017-08-28] MEDS: RANITIDINE HCL 150 MG TABLET (FP) PO SCH ×2 (10:31→21:33)
[2017-08-28] MEDS: NICOTINE 21 MG/24 HOURS TOPICAL PATCH TD SCH (10:31)
[2017-08-28] MEDS: hydrOXYzine PAMOATE 25 MG CAPSULE (FP) PO PRN (19:38)
[2017-08-28] MEDS: THIAMINE HCL 100 MG TABLET (FP) PO SCH (21:33)
[2017-08-28] MEDS: MIRTAZAPINE 15 MG TABLET (FP) PO SCH (21:33)
[2017-08-28] MEDS: MINERAL OIL/PETROLAT/WATER TOPICAL CREAM 113 GM JAR TP SCH (21:33)
[2017-08-29] MEDS: CYCLOBENZAPRINE HCL 5 MG TABLET PO SCH (06:37)
[2017-08-29] MEDS: GABAPENTIN 300 MG CAPSULE (FP) PO SCH (06:37)
[2017-08-29] MEDS: NICOTINE POLACRILEX 4 MG GUM BC PRN ×2 (08:35→12:54)
[2017-08-29] MEDS: NICOTINE 21 MG/24 HOURS TOPICAL PATCH TD SCH (10:45)
[2017-08-29] MEDS: cloNIDine HCL 0.1 MG TABLET PO SCH (10:45)
[2017-08-29] MEDS: RANITIDINE HCL 150 MG TABLET (FP) PO SCH ×2 (10:46→22:02)
[2017-08-29] MEDS: PRENATAL VITAMINS W/ FOLIC ACID TABLET (FP) PO SCH (10:46)
[2017-08-29] MEDS: THIAMINE HCL 100 MG TABLET (FP) PO SCH (22:02)
[2017-08-29] MEDS: MINERAL OIL/PETROLAT/WATER TOPICAL CREAM 113 GM JAR TP SCH (22:02)
[2017-08-29] MEDS: MIRTAZAPINE 15 MG TABLET (FP) PO SCH (22:02)
[2017-08-30] MEDS: PRENATAL VITAMINS W/ FOLIC ACID TABLET (FP) PO SCH (10:29)
[2017-08-30] MEDS: NICOTINE 21 MG/24 HOURS TOPICAL PATCH TD SCH (10:29)
[2017-08-30] MEDS: RANITIDINE HCL 150 MG TABLET (FP) PO SCH ×2 (10:29→21:51)
[2017-08-30] MEDS: NICOTINE POLACRILEX 4 MG GUM BC PRN ×2 (17:28→21:51)
[2017-08-30] MEDS: MIRTAZAPINE 15 MG TABLET (FP) PO SCH (21:51)
[2017-08-30] MEDS: MINERAL OIL/PETROLAT/WATER TOPICAL CREAM 113 GM JAR TP SCH (21:51)
[2017-08-30] MEDS: THIAMINE HCL 100 MG TABLET (FP) PO SCH (21:51)
[2017-08-31] MEDS: NICOTINE POLACRILEX 4 MG GUM BC PRN ×4 (07:51→23:13)
[2017-08-31] MEDS: RANITIDINE HCL 150 MG TABLET (FP) PO SCH ×2 (10:52→21:44)
[2017-08-31] MEDS: NICOTINE 21 MG/24 HOURS TOPICAL PATCH TD SCH (10:52)
[2017-08-31] MEDS: PRENATAL VITAMINS W/ FOLIC ACID TABLET (FP) PO SCH (10:52)
[2017-08-31] MEDS: THIAMINE HCL 100 MG TABLET (FP) PO SCH (21:44)
[2017-08-31] MEDS: MINERAL OIL/PETROLAT/WATER TOPICAL CREAM 113 GM JAR TP SCH (21:44)
[2017-08-31] MEDS: MIRTAZAPINE 15 MG TABLET (FP) PO SCH (21:44)
[2017-09-01] MEDS: PRENATAL VITAMINS W/ FOLIC ACID TABLET (FP) PO SCH (10:32)
[2017-09-01] MEDS: RANITIDINE HCL 150 MG TABLET (FP) PO SCH ×2 (10:33→22:10)
[2017-09-01] MEDS: NICOTINE 21 MG/24 HOURS TOPICAL PATCH TD SCH (10:33)
[2017-09-01] MEDS: NICOTINE POLACRILEX 4 MG GUM BC PRN ×3 (12:11→22:10)
[2017-09-01] MEDS: MIRTAZAPINE 15 MG TABLET (FP) PO SCH (22:09)
[2017-09-01] MEDS: MINERAL OIL/PETROLAT/WATER TOPICAL CREAM 113 GM JAR TP SCH (22:10)
[2017-09-01] MEDS: THIAMINE HCL 100 MG TABLET (FP) PO SCH (22:10)
[2017-09-02 07:20] VITALS: BP 134/94; PULSE 78; TEMP 98.3
[2017-09-02] MEDS: NICOTINE 21 MG/24 HOURS TOPICAL PATCH TD SCH (09:51)
[2017-09-02] MEDS: PRENATAL VITAMINS W/ FOLIC ACID TABLET (FP) PO SCH (09:51)
[2017-09-02] MEDS: RANITIDINE HCL 150 MG TABLET (FP) PO SCH (09:51)
--- NOTE | 2017-09-02 09:58 | PN ---
Psychiatric Progress Note Vital Signs: Vital Signs Period Temp Pulse Resp BP Sys/Pollock Pulse Ox Last 24 Hr 98.3 F 78 18-18 134/94 Date of Session: 09/02/17 Chief Complaint:: discharge visit HPI: Patient is addressing opioid dependence,Nicotine dependence comorbid. MDD (major depressive disorder). ROS: lower back pain medically managed Current Medications: Active Medications Generic Name Dose Route Start Last Admin Trade Name Freq PRN Reason Stop Dose Admin Acetaminophen 650 mg 08/03/17 19:23 08/07/17 07:34 Tylenol - PO 650 mg Q4H PRN Administration FEVER OR PAIN Al Hydroxide/Mg Hydroxide 30 ml 08/03/17 19:23 Mylanta Oral Suspension - PO Q6H PRN DYSPEPSIA Eucalyptus/Menthol/Phenol/Sorbitol 1 each 08/03/17 19:23 Cepastat Lozenge - MM Q4H PRN SORE THROAT Guaifenesin 10 ml 08/03/17 19:23 Robitussin Dm - PO Q6H PRN COUGH Hydroxyzine Pamoate 25 mg 08/07/17 16:34 08/28/17 19:38 Vistaril - PO 25 mg Q4H PRN Administration ANXIETY Loperamide HCl 4 mg 08/03/17 19:23 Imodium - PO Q6H PRN DIARRHEA Magnesium Citrate 300 ml 08/03/17 19:23 Citroma - PO Q48H PRN CONSTIPATION Magnesium Hydroxide 30 ml 08/03/17 19:23 08/14/17 18:15 Milk Of Magnesia - PO 30 ml DAILY PRN Administration CONSTIPATION Mirtazapine 15 mg 08/09/17 22:00 09/01/17 22:09 Remeron - PO 15 mg HS MARYJANE Administration Multi-Ingredient Lotion 1 applic 08/03/17 22:00 09/01/17 22:10 Eucerin (Small Jar) - TP Not Given HS MARYJANE Nicotine 21 mg 08/04/17 10:00 09/01/17 10:33 Nicoderm Patch - TD Not Given DAILY MARYJANE Nicotine Polacrilex 4 mg 08/03/17 19:23 09/01/17 22:10 Nicorette Gum - BC 4 mg Q2H PRN Administration NICOTINE REPLACEMENT RX Ondansetron HCl 8 mg 08/16/17 13:27 Zofran Odt - SL Q6H PRN NAUSEA AND/OR VOMITING Multivit/Folic Acid/Iron 1 tab 08/04/17 10:00 09/01/17 10:32 Vitamins (Sjr) - PO 1 tab DAILY MARYJANE Administration Pseudoephedrine/Triprolidine 1 combo 08/03/17 19:23 Actifed - PO TID PRN NASAL CONGESTION Ranitidine HCl 150 mg 08/03/17 22:00 09/01/17 22:10 Zantac - PO 150 mg BID MARYJANE Administration Thiamine HCl 100 mg 08/03/17 22:00 09/01/17 22:10 Vitamin B1 - PO Not Given HS MARYJANE Current Side Effect: No Lab tests ordered: No Lab tests reviewed: Yes Provider note:: Patient has completed today his treatment and met his goals, will continue to address his isssues at [facility] outpatient treatment program. Patient gained insights into his addiction and motivated to continue maintain abstinence, he reports he learned through this treatments how to improve coping skills, he identified his relapse triggres and was encouraged to utilize all supports availbal to prevent relapses. Remeron well tolerated, no side-effects reported, patient his moood is brighter, sleep better, scripts provided for 30 days supply, stable for discharge todayl. Total face to face time:: 35 Mental Status Exam - Mental Status Exam Alert and Oriented to: Time, Place, Person Cognitive Function: Good, Grossly Intact Patient Appearance: Well Groomed Mood: Hopeful Affect: Appropriate, Mood Congruent Patient Behavior: Appropriate, Cooperative Speech Pattern: Clear, Appropriate Voice Loudness: Normal Thought Process: Intact, Goal Oriented Thought Disorder: Not Present Hallucinations: Denies Suicidal Ideation: Denies Homicidal Ideation: Denies Insight/Judgement: Fair Sleep: Well Appetite: Good Muscle strength/Tone: Normal Gait/Station: Normal Psychiatric Treatment Plan - Problem List (1) Opioid dependence Current Visit: Yes (2) MDD (major depressive disorder) Current Visit: Yes (3) Nicotine dependence Current Visit: Yes Qualifiers: Nicotine product type: cigarettes Substance use status: in withdrawal Qualified Code(s): F17.213 - Nicotine dependence, cigarettes, with withdrawal (4) Low back pain Current Visit: No Qualifiers: Chronicity: unspecified Back pain laterality: unspecified Sciatica presence: unspecified whether sciatica present Qualified Code(s): M54.5 - Low back pain
== END 2017-09-02 11:00 | disposition home or self-care (01) | DRG 895 ==
LOC: YASAS 14:38 → Y6N 18:25 → Y5N 08-08 11:17
PROVIDERS: ADMIT Internal Medicine; ATTEND Psychiatry & Neurology Psychiatry
PROC: HZ42ZZZ Group Counseling for Substance Abuse Treatment, Cognitive-Behavioral (ICD-10-PCS; principal; 2017-08-03)
PROC: HZ2ZZZZ Detoxification Services for Substance Abuse Treatment (ICD-10-PCS; 2017-08-08)
DX: F11.23 Opioid dependence with withdrawal (principal); F33.9 Major depressive disorder, recurrent, unspecified; F17.210 Nicotine dependence, cigarettes, uncomplicated; B18.2 Chronic viral hepatitis C; M54.5 Low back pain; G47.00 Insomnia, unspecified; Z87.438 Personal history of other diseases of male genital organs
CPT/HCPCS: 36415; 80053; 81003; 81015; 85025; 85027; 86593; 93005; 93010; J0735

== ENCOUNTER 2017-12-03 17:09 | Inpatient (IN) | payer OTHER ==
[2017-12-03 17:23] VITALS: BMI 22.4
--- NOTE | 2017-12-03 20:23 | HP ---
COWS - Scale Resting Pulse: 0= OK 80 or Below Sweatin=Flushed/Facial Moisture Restless Observation: 1= Difficult to Sit Still Pupil Size: 1= Pupils >than Normal Bone or Joint Aches: 4=Acute Joint/Muscle Pain Runny Nose/ Eye Tearin= Runny Nose/Eyes GI Upset > 30mins: 3= Vomiting/Diarrhea (vomiting x 6, diarrhea x 4) Tremor Observation: 2= Slight Tremor Visible Yawning Observation: 0= None Anxiety or Irritability: 2=Irritable/Anxious Goose Flesh Skin: 0=Smooth Skin COWS Score: 17 Admission ROS [facility] Chief Complaint: Heroine withdrawal symptoms Allergies/Adverse Reactions: Allergies Allergy/AdvReac Type Severity Reaction Status Date / Time No Known Allergies Allergy Verified 06/12/17 18:44 History of Present Illness: 57 years old male with a history of heroin and cocaine dependence is seeking admission to detox. Patient has been to previous detox and reports 10 years of sobriety. He has past medical history of GERD, low back pain, Hep C (treated with Harvoni), Gonorrhea (treated 20 years ago) and depression. He reports suicide attempt in 2016 and denies suicidal ideation at this time. Exam Limitations: No Limitations - Ebola screening Have you traveled outside of the country in the last 21 days: No (N) Have you had contact with anyone from an Ebola affected area: No Have you been sick,other than usual withdrawal symptoms: No Do you have a fever: No - Review of Systems Constitutional: Chills, Loss of Appetite, Malaise, Night Sweats, Weakness, Unexplained wgt Loss (reports over 10 lbs weight loss) EENT: reports: Nose Congestion Respiratory: reports: No Symptoms reported Cardiac: reports: No Symptoms Reported GI: reports: Diarrhea, Nausea, Poor Appetite, Vomiting, Abdominal cramping : reports: No Symptoms Reported Musculoskeletal: reports: Back Pain, Muscle Pain, Muscle Weakness Integumentary: reports: Dryness, Flushing Neuro: reports: Tingling, Tremors Endocrine: reports: No Symptoms Reported Hematology: reports: No Symptoms Reported Psychiatric: reports: Mood/Affect Appropiate, Orientated x3, Anxious, Depressed Other Systems: Reviewed and Negative Patient History - Patient Medical History Hx Anemia: Yes (Ferrous Sulphate) Hx Asthma: No Hx Chronic Obstructive Pulmonary Disease (COPD): No Hx Cancer: No Hx Cardiac Disorders: No Hx Congestive Heart Failure: No Hx Hypertension: No Hx Hypercholesterolemia: No Hx Pacemaker: No HX Cerebrovascular Accident: No Hx Seizures: No Hx Dementia: No Hx Diabetes: No Hx Gastrointestinal Disorders: Yes (GERD - Not on medication) Hx Liver Disease: No Hx Genitourinary Disorders: No Hx Sexually Transmitted Disorders: Yes (Gonorrhea 20 yrs ago, treated) Hx Renal Disease (ESRD): No Hx Thyroid Disease: No Hx Human Immunodeficiency Virus (HIV): No Hx Hepatitis C: Yes (Treated with Harvoni x 3 months) Hx Depression: Yes (Remeron and Trazodone) Hx Suicide Attempt: No (Reports suicide attempt in 2016, denies suicidal attempt at this time) Hx Bipolar Disorder: Yes (Not on medication) Hx Schizophrenia: No Other Medical History: Low back pain - Not on medication - Patient Surgical History Past Surgical History: No - PPD History Previous Implant?: Yes Documented Results: Negative w/proof Implanted On Prior R Admission?: Yes Date: 06/14/17 Results: 0mm PPD to be Administered?: No - Reproductive History Patient is a Female of Child Bearing Age (11 -55 yrs old): No (MALE) - Smoking Cessation Smoking history: Current every day smoker Have you smoked in the past 12 months: Yes Aproximately how many cigarettes per day: 20 Cigars Per Day: 0 Hx Chewing Tobacco Use: No Initiated information on smoking cessation: Yes 'Breaking Loose' booklet given: 12/03/17 - Substances Abused Heroin Route: SNIFF Frequency: Daily Amount used: 10-15 BAGS Age of first use: 39 Date of Last Use: 12/03/17 Cocaine Route: Smoking Frequency: 1-3 times last 30 days Amount used: $30 Age of first use: 39 Date of Last Use: 12/02/17 Family Disease History - Family Disease History Family Disease History: CA: Grandparent (Lung) Admission Physical Exam S - Vital Signs Vital Signs: Vital Signs - 24 hr 12/03/17 17:20 Temperature 98.1 F Pulse Rate 80 Respiratory 18 Rate Blood Pressure 122/81 - Physical General Appearance: Yes: Moderate Distress, Tremorous, Irritable, Sweating, Anxious HEENTM: Yes: EOMI, Normal Voice, CARMITA, Rhinorrhea Respiratory: Yes: Lungs Clear, Normal Breath Sounds, No Respiratory Distress Neck: Yes: Supple Breast: Yes: Breast Exam Deferred Cardiology: Yes: Regular Rhythm, Regular Rate, S1, S2 Abdominal: Yes: Normal Bowel Sounds, Soft Genitourinary: Yes: Within Normal Limits Back: Yes: Normal Inspection Musculoskeletal: Yes: Back pain, Muscle Pain, Muscle weakness Extremities: Yes: Tremors Neurological: Yes: Alert, Normal Mood/Affect Integumentary: Yes: Dry Lymphatic: Yes: Within Normal Limits - Diagnostic (1) Diarrhea Current Visit: Yes Status: Acute (2) Nausea & vomiting Current Visit: Yes Status: Acute Qualifiers: Vomiting Intractability: unspecified (3) Opioid dependence, uncomplicated Current Visit: Yes Status: Chronic (4) Weight loss Current Visit: Yes Status: Chronic (5) GERD (gastroesophageal reflux disease) Current Visit: Yes Status: Chronic (6) Hx of hepatitis C Current Visit: Yes Status: Resolved (7) Low back pain Current Visit: Yes Status: Chronic Qualifiers: Chronicity: unspecified Back pain laterality: unspecified Sciatica presence: unspecified whether sciatica present Qualified Code(s): M54.5 - Low back pain (8) Nicotine dependence Current Visit: Yes Status: Chronic Qualifiers: Nicotine product type: cigarettes Substance use status: in withdrawal Qualified Code(s): F17.213 - Nicotine dependence, cigarettes, with withdrawal (9) Depression (emotion) Current Visit: Yes Status: Chronic Qualifiers: Depression Type: dysthymia Qualified Code(s): F34.1 - Dysthymic disorder Cleared for Admission [facility] - Detox or Rehab [facility] Level of Care: Medically Managed Detox Regimen/Protocol: Methadone [facility] Breath Alcohol Content Breath Alcohol Content: 0 Urine Drug Screen - Results Drug Screen Negative: No Urine Drug Screen Results: VICENTE-Cocaine, OPI-Opiates, OXY-Oxycodone
[2017-12-03] MEDS ORDERED: LOPERAMIDE HCL 2 MG CAPSULE PO PRN (20:47)
[2017-12-03] MEDS ORDERED: ACETAMINOPHEN 325 MG TABLET (FP) PO PRN (20:47)
[2017-12-03] MEDS ORDERED: IBUPROFEN 400 MG TABLET (FP) PO PRN (20:47)
[2017-12-03] MEDS ORDERED: guaiFENesin/D-METHORPHAN HB 10 ML UNIT-DOSE CUPS PO PRN (20:47)
[2017-12-03] MEDS ORDERED: MENTHOL/PHENOL 1 EACH UD MM PRN (20:47)
[2017-12-03] MEDS ORDERED: MAGNESIUM HYDROX 2400MG/30ML ORAL SUSPENSION 30 ML CUP PO PRN (20:47)
[2017-12-03] MEDS ORDERED: MAGNESIUM CITRATE 300 ML BOTTLE PO PRN (20:47)
[2017-12-03] MEDS ORDERED: P-EPHED 60MG/TRIPROLIDI 2.5MG TABLET PO PRN (20:47)
[2017-12-03] MEDS ORDERED: MAG HYDROX/AL HYDROX/SIMETH 30 ML UNIT-DOSE CUP PO PRN (20:47)
[2017-12-03] MEDS ORDERED: METHADONE HCL 10 MG TABLET (FOR DETOX USE ONLY) PO ONE ×2 (21:15→23:00)
[2017-12-03] MEDS ORDERED: MELATONIN 5 MG TABLETS PO PRN (22:00)
[2017-12-03] MEDS: THIAMINE HCL 100 MG TABLET (FP) PO SCH (22:14)
[2017-12-04 09:05] LABS: URINE APPEARANCE CLEAR; URINE BILIRUBIN NEGATIVE (<2.0 mg/dL); URINE COLOR DKYELLOW; URINE GLUCOSE (UA) NEGATIVE (NEGATIVE); URINE KETONE TRACE (NEGATIVE); URINE LEUK ESTERASE NEGATIVE (NEGATIVE); URINE NITRITE NEGATIVE (NEGATIVE); URINE PROTEIN NEGATIVE (NEGATIVE); URINE UROBILINOGEN 4.0 E.U/dl mg/dL (0.2-1.0)
[2017-12-04] MEDS ORDERED: METHADONE HCL 10 MG TABLET (FOR DETOX USE ONLY) PO ONE (10:00)
[2017-12-04] MEDS: PRENATAL VITAMINS W/ FOLIC ACID TABLET (FP) PO SCH (10:35)
[2017-12-04] MEDS: NICOTINE 14 MG/24 HOURS TOPICAL PATCH TD SCH (10:38)
[2017-12-04] MEDS: NICOTINE POLACRILEX 2 MG GUM BC PRN (10:38)
--- NOTE | 2017-12-04 11:18 | PN ---
BHS COWS - Scale Resting Pulse: 0= [place] 80 or Below Sweatin=Flushed/Facial Moisture Restless Observation: 1= Difficult to Sit Still Pupil Size: 0= Normal to Room Light Bone or Joint Aches: 1= Mild Discomfort Runny Nose/ Eye Tearin= Nasal Congestion GI Upset > 30mins: 2= Nausea/Diarrhea Tremor Observation of Outstretched Hands: 2= Slight Tremor Visible Yawning Observation: 2= >3x During Session Anxiety or Irritability: 2=Irritable/Anxious Goose Flesh Skin: 0=Smooth Skin COWS Score: 13 BHS Progress Note (SOAP) Subjective: sweats body aches interrupted sleep agitation Objective: 12/04/17 11:17 Vital Signs Temperature 97.9 F 12/04/17 10:00 Pulse Rate 50 L 12/04/17 10:00 Respiratory Rate 18 12/04/17 10:00 Blood Pressure 124/74 12/04/17 10:00 O2 Sat by Pulse Oximetry (%) Laboratory Tests 12/04/17 08:51 Urine Color Dkyellow Urine Appearance Clear Urine pH 6.0 Ur Specific [place] 1.013 Urine Protein Negative Urine Glucose (UA) Negative Urine Ketones Trace H Urine Blood Negative Urine Nitrite Negative Urine Bilirubin Negative Urine Urobilinogen 4.0 e.u/dl Ur Leukocyte Esterase Negative pending labs [id number] ambulating no acute distress Assessment: 12/04/17 11:17 withdrawal sx Plan: continue detox increase fluids labs pending
[2017-12-04 11:19] LABS: HEMATOCRIT 32.9 % (35.4-49); HEMOGLOBIN 11.3 GM/dL (11.7-16.9); MCHC 34.4 g/dl (32.0-35.9); MEAN CELL VOLUME 98.8 fl (80-96); MEAN PLT VOLUME 9.3 fl (7.5-11.1); PLATELET COUNT 265 K/MM3 (134-434); RBC 3.33 M/mm3 (4.00-5.60); RDW 13.4 % (11.9-15.9); WHITE BLOOD COUNT 10.7 K/mm3 (4.0-10.0)
[2017-12-04 11:30] LABS: ALBUMIN 3.1 g/dl (3.4-5.0); ANION GAP 5 (8-16); BLOOD UREA NITROGEN 18 mg/dL (7-18); CALCIUM 8.1 mg/dL (8.5-10.1); CHLORIDE 105 mmol/L (98-107); CO2 29 mmol/L (21-32); GLUCOSE,RANDOM 108 mg/dL (74-106); POTASSIUM 4.3 mmol/L (3.5-5.1); SODIUM 139 mmol/L (136-145)
[2017-12-04 11:35] LABS: ALK PHOS 70 U/L (45-117); BILIRUBIN,TOTAL 0.4 mg/dL (0.2-1.0); CREATININE 0.9 mg/dL (0.7-1.3); SGOT/AST 13 U/L (15-37); SGPT/ALT 12 U/L (12-78); TOT PROT 6.5 g/dl (6.4-8.2)
[2017-12-04] MEDS: diazePAM 5 MG TABLET PO PRN (11:57)
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
[2017-12-04] MEDS: THIAMINE HCL 100 MG TABLET (FP) PO SCH (22:40)
[2017-12-04] MEDS: MIRTAZAPINE 15 MG TABLET (FP) PO SCH (22:40)
--- NOTE | 2017-12-05 09:26 | PN ---
S CIWA - CIWA Score Nausea/Vomitin-No Nausea/No Vomiting Muscle Tremors: 4-Moderate,w/Arms Extend Anxiety: 3 Agitation: 3 Paroxysmal Sweats: 1-Minimal Palms Moist Orientation: 0-Oriented Tacttile Disturbances: 1-Very Mild Itch/Numbness Auditory Disturbances: 0-None Visual Disturbances: 0-None Headache: 0-None Present CIWA-Ar Total Score: 12 BHS Progress Note (SOAP) Subjective: joint pain body ache trouble sleeping Objective: 12/05/17 09:27 Vital Signs Temperature 97.9 F 12/05/17 06:00 Pulse Rate 54 L 12/05/17 06:00 Respiratory Rate 18 12/05/17 06:00 Blood Pressure 151/94 12/05/17 06:00 O2 Sat by Pulse Oximetry (%) Laboratory Last Values WBC 10.7 K/mm3 (4.0-10.0) H D 12/04/17 08:00 RBC 3.33 M/mm3 (4.00-5.60) L 12/04/17 08:00 Hgb 11.3 GM/dL (11.7-16.9) L 12/04/17 08:00 Hct 32.9 % (35.4-49) L D 12/04/17 08:00 MCV 98.8 fl (80-96) H 12/04/17 08:00 MCH 34.0 pg (25.7-33.7) H 12/04/17 08:00 MCHC 34.4 g/dl (32.0-35.9) 12/04/17 08:00 RDW 13.4 % (11.9-15.9) 12/04/17 08:00 Plt Count 265 K/MM3 (134-434) 12/04/17 08:00 MPV 9.3 fl (7.5-11.1) 12/04/17 08:00 Sodium 139 mmol/L (136-145) 12/04/17 08:00 Potassium 4.3 mmol/L (3.5-5.1) 12/04/17 08:00 Chloride 105 mmol/L (98-107) 12/04/17 08:00 Carbon Dioxide 29 mmol/L (21-32) 12/04/17 08:00 Anion Gap 5 (8-16) L 12/04/17 08:00 BUN 18 mg/dL (7-18) 12/04/17 08:00 Creatinine 0.9 mg/dL (0.7-1.3) 12/04/17 08:00 Creat Clearance w eGFR > 60 (>60) 12/04/17 08:00 Random Glucose 108 mg/dL (74-106) H 12/04/17 08:00 Calcium 8.1 mg/dL (8.5-10.1) L 12/04/17 08:00 Total Bilirubin 0.4 mg/dL (0.2-1.0) 12/04/17 08:00 AST 13 U/L (15-37) L 12/04/17 08:00 ALT 12 U/L (12-78) D 12/04/17 08:00 Alkaline Phosphatase 70 U/L (45-117) D 12/04/17 08:00 Total Protein 6.5 g/dl (6.4-8.2) 12/04/17 08:00 Albumin 3.1 g/dl (3.4-5.0) L 12/04/17 08:00 Urine Color Dkyellow 12/04/17 08:51 Urine Appearance Clear 12/04/17 08:51 Urine pH 6.0 (5.0-8.0) 12/04/17 08:51 Ur Specific [place] 1.013 (1.001-1.035) 12/04/17 08:51 Urine Protein Negative (NEGATIVE) 12/04/17 08:51 Urine Glucose (UA) Negative (NEGATIVE) 12/04/17 08:51 Urine Ketones Trace (NEGATIVE) H 12/04/17 08:51 Urine Blood Negative (NEGATIVE) 12/04/17 08:51 Urine Nitrite Negative (NEGATIVE) 12/04/17 08:51 Urine Bilirubin Negative (<2.0 mg/dL) 12/04/17 08:51 Urine Urobilinogen 4.0 e.u/dl mg/dL (0.2-1.0) 12/04/17 08:51 Ur Leukocyte Esterase Negative (NEGATIVE) 12/04/17 08:51 RPR Titer Nonreactive (NONREACTIVE) 12/04/17 08:00 lab noted Assessment: 12/05/17 09:27 continue detox 12/05/17 09:27 hyper tension Plan: continue detox begin amlodopine 5 mg bid
[2017-12-05] MEDS ORDERED: METHADONE HCL 5 MG TABLET (FOR DETOX USE ONLY) PO ONE (10:00)
[2017-12-05] MEDS: PRENATAL VITAMINS W/ FOLIC ACID TABLET (FP) PO SCH (10:04)
[2017-12-05] MEDS: amLODIPine BESYLATE 5 MG TABLET (FP) PO SCH ×2 (10:05→22:51)
[2017-12-05] MEDS: NICOTINE 14 MG/24 HOURS TOPICAL PATCH TD SCH (10:05)
[2017-12-05] MEDS: diazePAM 5 MG TABLET PO PRN ×2 (11:39→15:35)
[2017-12-05] MEDS: NICOTINE POLACRILEX 2 MG GUM BC PRN ×2 (11:40→14:23)
--- NOTE | 2017-12-05 12:30 | EKG ---
Test Reason : Blood Pressure : / mmHG Vent. Rate : 057 BPM Atrial Rate : 057 BPM P-R Int : 140 ms QRS Dur : 070 ms QT Int : 400 ms P-R-T Axes : 071 067 062 degrees QTc Int : 389 ms SINUS BRADYCARDIA OTHERWISE NORMAL ECG WHEN COMPARED WITH ECG OF 03-AUG-2017 20:04, NO SIGNIFICANT CHANGE WAS FOUND Confirmed by AISSATOU BISWAS MD ([id number]) on 12/05/2017 12:29:57 PM Referred By: Confirmed By:AISSATOU BISWAS MD
[2017-12-05] MEDS: MIRTAZAPINE 15 MG TABLET (FP) PO SCH (22:51)
[2017-12-05] MEDS: THIAMINE HCL 100 MG TABLET (FP) PO SCH (22:51)
[2017-12-06] MEDS ORDERED: METHADONE HCL 5 MG TABLET (FOR DETOX USE ONLY) PO ONE (10:00)
[2017-12-06] MEDS: amLODIPine BESYLATE 5 MG TABLET (FP) PO SCH ×2 (10:21→22:35)
[2017-12-06] MEDS: PRENATAL VITAMINS W/ FOLIC ACID TABLET (FP) PO SCH (10:21)
[2017-12-06] MEDS: NICOTINE 14 MG/24 HOURS TOPICAL PATCH TD SCH (10:21)
[2017-12-06] MEDS: diazePAM 5 MG TABLET PO PRN ×3 (10:21→18:37)
[2017-12-06] MEDS: NICOTINE POLACRILEX 2 MG GUM BC PRN ×3 (10:40→18:38)
--- NOTE | 2017-12-06 10:52 | PN ---
BHS Progress Note (SOAP) Subjective: joint pain body aches gi distress sweat tremor anxiety restlessness Objective: 12/06/17 10:51 Vital Signs Temperature 97.9 F 12/06/17 10:36 Pulse Rate 58 L 12/06/17 10:36 Respiratory Rate 18 12/06/17 10:36 Blood Pressure 141/77 12/06/17 10:36 O2 Sat by Pulse Oximetry (%) Laboratory Last Values WBC 10.7 K/mm3 (4.0-10.0) H D 12/04/17 08:00 RBC 3.33 M/mm3 (4.00-5.60) L 12/04/17 08:00 Hgb 11.3 GM/dL (11.7-16.9) L 12/04/17 08:00 Hct 32.9 % (35.4-49) L D 12/04/17 08:00 MCV 98.8 fl (80-96) H 12/04/17 08:00 MCH 34.0 pg (25.7-33.7) H 12/04/17 08:00 MCHC 34.4 g/dl (32.0-35.9) 12/04/17 08:00 RDW 13.4 % (11.9-15.9) 12/04/17 08:00 Plt Count 265 K/MM3 (134-434) 12/04/17 08:00 MPV 9.3 fl (7.5-11.1) 12/04/17 08:00 Sodium 139 mmol/L (136-145) 12/04/17 08:00 Potassium 4.3 mmol/L (3.5-5.1) 12/04/17 08:00 Chloride 105 mmol/L (98-107) 12/04/17 08:00 Carbon Dioxide 29 mmol/L (21-32) 12/04/17 08:00 Anion Gap 5 (8-16) L 12/04/17 08:00 BUN 18 mg/dL (7-18) 12/04/17 08:00 Creatinine 0.9 mg/dL (0.7-1.3) 12/04/17 08:00 Creat Clearance w eGFR > 60 (>60) 12/04/17 08:00 Random Glucose 108 mg/dL (74-106) H 12/04/17 08:00 Calcium 8.1 mg/dL (8.5-10.1) L 12/04/17 08:00 Total Bilirubin 0.4 mg/dL (0.2-1.0) 12/04/17 08:00 AST 13 U/L (15-37) L 12/04/17 08:00 ALT 12 U/L (12-78) D 12/04/17 08:00 Alkaline Phosphatase 70 U/L (45-117) D 12/04/17 08:00 Total Protein 6.5 g/dl (6.4-8.2) 12/04/17 08:00 Albumin 3.1 g/dl (3.4-5.0) L 12/04/17 08:00 Urine Color Dkyellow 12/04/17 08:51 Urine Appearance Clear 12/04/17 08:51 Urine pH 6.0 (5.0-8.0) 12/04/17 08:51 Ur Specific [place] 1.013 (1.001-1.035) 12/04/17 08:51 Urine Protein Negative (NEGATIVE) 12/04/17 08:51 Urine Glucose (UA) Negative (NEGATIVE) 12/04/17 08:51 Urine Ketones Trace (NEGATIVE) H 12/04/17 08:51 Urine Blood Negative (NEGATIVE) 12/04/17 08:51 Urine Nitrite Negative (NEGATIVE) 12/04/17 08:51 Urine Bilirubin Negative (<2.0 mg/dL) 12/04/17 08:51 Urine Urobilinogen 4.0 e.u/dl mg/dL (0.2-1.0) 12/04/17 08:51 Ur Leukocyte Esterase Negative (NEGATIVE) 12/04/17 08:51 RPR Titer Nonreactive (NONREACTIVE) 12/04/17 08:00 lab noted Assessment: 12/06/17 10:51 withdrawal sx Plan: continue detox
[2017-12-06] MEDS: MIRTAZAPINE 15 MG TABLET (FP) PO SCH (22:35)
[2017-12-06] MEDS: THIAMINE HCL 100 MG TABLET (FP) PO SCH (22:36)
[2017-12-07] MEDS: NICOTINE POLACRILEX 2 MG GUM BC PRN ×4 (07:02→17:35)
--- NOTE | 2017-12-07 09:36 | PN ---
S Progress Note (SOAP) Subjective: feeling better no tremor slept well less sweat wants to maintain sober and healthy life Objective: 12/07/17 09:34 Vital Signs Temperature 98.1 F 12/07/17 09:27 Pulse Rate 53 L 12/07/17 09:27 Respiratory Rate 18 12/07/17 09:27 Blood Pressure 117/73 12/07/17 09:27 O2 Sat by Pulse Oximetry (%) Laboratory Last Values WBC 10.7 K/mm3 (4.0-10.0) H D 12/04/17 08:00 RBC 3.33 M/mm3 (4.00-5.60) L 12/04/17 08:00 Hgb 11.3 GM/dL (11.7-16.9) L 12/04/17 08:00 Hct 32.9 % (35.4-49) L D 12/04/17 08:00 MCV 98.8 fl (80-96) H 12/04/17 08:00 MCH 34.0 pg (25.7-33.7) H 12/04/17 08:00 MCHC 34.4 g/dl (32.0-35.9) 12/04/17 08:00 RDW 13.4 % (11.9-15.9) 12/04/17 08:00 Plt Count 265 K/MM3 (134-434) 12/04/17 08:00 MPV 9.3 fl (7.5-11.1) 12/04/17 08:00 Sodium 139 mmol/L (136-145) 12/04/17 08:00 Potassium 4.3 mmol/L (3.5-5.1) 12/04/17 08:00 Chloride 105 mmol/L (98-107) 12/04/17 08:00 Carbon Dioxide 29 mmol/L (21-32) 12/04/17 08:00 Anion Gap 5 (8-16) L 12/04/17 08:00 BUN 18 mg/dL (7-18) 12/04/17 08:00 Creatinine 0.9 mg/dL (0.7-1.3) 12/04/17 08:00 Creat Clearance w eGFR > 60 (>60) 12/04/17 08:00 Random Glucose 108 mg/dL (74-106) H 12/04/17 08:00 Calcium 8.1 mg/dL (8.5-10.1) L 12/04/17 08:00 Total Bilirubin 0.4 mg/dL (0.2-1.0) 12/04/17 08:00 AST 13 U/L (15-37) L 12/04/17 08:00 ALT 12 U/L (12-78) D 12/04/17 08:00 Alkaline Phosphatase 70 U/L (45-117) D 12/04/17 08:00 Total Protein 6.5 g/dl (6.4-8.2) 12/04/17 08:00 Albumin 3.1 g/dl (3.4-5.0) L 12/04/17 08:00 Urine Color Dkyellow 12/04/17 08:51 Urine Appearance Clear 12/04/17 08:51 Urine pH 6.0 (5.0-8.0) 04 08:51 Ur Specific [place] 1.013 (1.001-1.035) 12/04/17 08:51 Urine Protein Negative (NEGATIVE) 12/04/17 08:51 Urine Glucose (UA) Negative (NEGATIVE) 12/04/17 08:51 Urine Ketones Trace (NEGATIVE) H 12/04/17 08:51 Urine Blood Negative (NEGATIVE) 12/04/17 08:51 Urine Nitrite Negative (NEGATIVE) 12/04/17 08:51 Urine Bilirubin Negative (<2.0 mg/dL) 12/04/17 08:51 Urine Urobilinogen 4.0 e.u/dl mg/dL (0.2-1.0) 12/04/17 08:51 Ur Leukocyte Esterase Negative (NEGATIVE) 12/04/17 08:51 Valproic Acid 4.426 ug/ml (50-100) L 12/06/17 08:30 RPR Titer Nonreactive (NONREACTIVE) 12/04/17 08:00 lab noted Assessment: 12/07/17 09:34 mild withdrawal sx Plan: medically supervised detox
[2017-12-07] MEDS ORDERED: METHADONE HCL 10 MG TABLET (FOR DETOX USE ONLY) PO ONE (10:00)
[2017-12-07] MEDS ORDERED: hydrOXYzine PAMOATE 25 MG CAPSULE (FP) PO ONE (10:00)
[2017-12-07] MEDS: amLODIPine BESYLATE 5 MG TABLET (FP) PO SCH ×2 (10:32→22:34)
[2017-12-07] MEDS: PRENATAL VITAMINS W/ FOLIC ACID TABLET (FP) PO SCH (10:32)
[2017-12-07] MEDS: NICOTINE 14 MG/24 HOURS TOPICAL PATCH TD SCH (10:35)
[2017-12-07] MEDS: MIRTAZAPINE 15 MG TABLET (FP) PO SCH (22:35)
[2017-12-07] MEDS: THIAMINE HCL 100 MG TABLET (FP) PO SCH (22:37)
[2017-12-08] MEDS ORDERED: METHADONE HCL 5 MG TABLET (FOR DETOX USE ONLY) PO ONE (06:00)
[2017-12-08] MEDS: NICOTINE POLACRILEX 2 MG GUM BC PRN (07:04)
[2017-12-08 08:42] VITALS: BP 119/71; PULSE 60; TEMP 97.7
--- NOTE | 2017-12-08 09:16 | DS ---
[facility] Detox Discharge Summary Admission Date: 12/03/17 Discharge Date: 12/08/17 - History Present History: Opioid Dependence Additional Comments: 57 years old male admitted on 12/03/17 for opioid withdrawal sx completed opioid detox regimen tolerated well denies opioid withdrawal sx patient is alert oriented x 3 no acute distress determines to maintain sober aftercare at [facility] - Physical Exam Results Vital Signs: Vital Signs Temperature 97.7 F 12/08/17 04:00 Pulse Rate 60 12/08/17 04:00 Respiratory Rate 18 12/08/17 04:00 Blood Pressure 119/71 12/08/17 04:00 O2 Sat by Pulse Oximetry (%) Pertinent Admission Physical Exam Findings: withdrawal sx Vital Signs Temperature 97.7 F 12/08/17 04:00 Pulse Rate 60 12/08/17 04:00 Respiratory Rate 18 12/08/17 04:00 Blood Pressure 119/71 12/08/17 04:00 O2 Sat by Pulse Oximetry (%) Laboratory Last Values WBC 10.7 K/mm3 (4.0-10.0) H D 12/04/17 08:00 RBC 3.33 M/mm3 (4.00-5.60) L 12/04/17 08:00 Hgb 11.3 GM/dL (11.7-16.9) L 12/04/17 08:00 Hct 32.9 % (35.4-49) L D 12/04/17 08:00 MCV 98.8 fl (80-96) H 12/04/17 08:00 MCH 34.0 pg (25.7-33.7) H 12/04/17 08:00 MCHC 34.4 g/dl (32.0-35.9) 12/04/17 08:00 RDW 13.4 % (11.9-15.9) 12/04/17 08:00 Plt Count 265 K/MM3 (134-434) 12/04/17 08:00 MPV 9.3 fl (7.5-11.1) 12/04/17 08:00 Sodium 139 mmol/L (136-145) 12/04/17 08:00 Potassium 4.3 mmol/L (3.5-5.1) 12/04/17 08:00 Chloride 105 mmol/L (98-107) 12/04/17 08:00 Carbon Dioxide 29 mmol/L (21-32) 12/04/17 08:00 Anion Gap 5 (8-16) L 12/04/17 08:00 BUN 18 mg/dL (7-18) 12/04/17 08:00 Creatinine 0.9 mg/dL (0.7-1.3) 12/04/17 08:00 Creat Clearance w eGFR > 60 (>60) 12/04/17 08:00 Random Glucose 108 mg/dL (74-106) H 12/04/17 08:00 Calcium 8.1 mg/dL (8.5-10.1) L 12/04/17 08:00 Total Bilirubin 0.4 mg/dL (0.2-1.0) 12/04/17 08:00 AST 13 U/L (15-37) L 12/04/17 08:00 ALT 12 U/L (12-78) D 12/04/17 08:00 Alkaline Phosphatase 70 U/L (45-117) D 12/04/17 08:00 Total Protein 6.5 g/dl (6.4-8.2) 12/04/17 08:00 Albumin 3.1 g/dl (3.4-5.0) L 12/04/17 08:00 Urine Color Dkyellow 12/04/17 08:51 Urine Appearance Clear 12/04/17 08:51 Urine pH 6.0 (5.0-8.0) 12/04/17 08:51 Ur Specific [place] 1.013 (1.001-1.035) 12/04/17 08:51 Urine Protein Negative (NEGATIVE) 12/04/17 08:51 Urine Glucose (UA) Negative (NEGATIVE) 12/04/17 08:51 Urine Ketones Trace (NEGATIVE) H 12/04/17 08:51 Urine Blood Negative (NEGATIVE) 12/04/17 08:51 Urine Nitrite Negative (NEGATIVE) 12/04/17 08:51 Urine Bilirubin Negative (<2.0 mg/dL) 12/04/17 08:51 Urine Urobilinogen 4.0 e.u/dl mg/dL (0.2-1.0) 12/04/17 08:51 Ur Leukocyte Esterase Negative (NEGATIVE) 12/04/17 08:51 Valproic Acid 4.426 ug/ml (50-1lab n00) L 12/06/17 08:30 RPR Titer Nonreactive (NONREACTIVE) 12/04/17 08:00 lab noted - Treatment Hospital Course: Detox Protocol Followed, Detoxed Safely, Responded well, Discharged Condition Good, Rehab Referral Accepted Patient has Accepted a Rehab Referral to: [facility] - Medication Discharge Medications: Ambulatory Orders Trazodone HCl 150 mg PO HS 12/03/17 Mirtazapine [Remeron -] 15 mg PO HS #30 tablet 12/04/17 - Diagnosis (1) GERD (gastroesophageal reflux disease) Current Visit: Yes Status: Chronic Qualifiers: Esophagitis presence: without esophagitis Qualified Code(s): K21.9 - Gastro -esophageal reflux disease without esophagitis (2) Nicotine dependence Current Visit: Yes Status: Acute Qualifiers: Nicotine product type: cigarettes Substance use status: in withdrawal Qualified Code(s): F17.213 - Nicotine dependence, cigarettes, with withdrawal (3) Hx of hepatitis C Current Visit: Yes Status: Resolved (4) Opioid dependence with withdrawal Current Visit: Yes Status: Acute - AMA Did Patient Leave Against Medical Advice: No
== END 2017-12-08 09:20 | disposition home or self-care (01) | DRG 897 ==
LOC: YASAS 17:09 → Y6N 21:02
PROVIDERS: ADMIT Internal Medicine; ATTEND Internal Medicine
PROC: HZ2ZZZZ Detoxification Services for Substance Abuse Treatment (ICD-10-PCS; principal; 2017-12-03)
DX: F19.230 Other psychoactive substance dependence with withdrawal, uncomplicated (principal); F33.9 Major depressive disorder, recurrent, unspecified; F19.282 Other psychoactive substance dependence with psychoactive substance-induced sleep disorder; F11.23 Opioid dependence with withdrawal; F17.210 Nicotine dependence, cigarettes, uncomplicated; F19.24 Other psychoactive substance dependence with psychoactive substance-induced mood disorder; K21.9 Gastro-esophageal reflux disease without esophagitis; D50.9 Iron deficiency anemia, unspecified; M54.5 Low back pain; Z86.19 Personal history of other infectious and parasitic diseases
CPT/HCPCS: 36415; 80053; 80164; 81003; 85027; 86593; 93005; 93010

== ENCOUNTER 2018-01-20 14:25 | Inpatient (IN) | payer OTHER ==
[2018-01-20 14:44] VITALS: BMI 20.9
--- NOTE | 2018-01-20 17:05 | HP ---
COWS - Scale Resting Pulse: 0= CT 80 or Below Sweatin= Chills/Flushing Restless Observation: 1= Difficult to Sit Still Pupil Size: 0= Normal to Room Light Bone or Joint Aches: 2= Severe Diffuse Aches Runny Nose/ Eye Tearin= Runny Nose/Eyes GI Upset > 30mins: 3= Vomiting/Diarrhea Tremor Observation: 2= Slight Tremor Visible Yawning Observation: 1= 1-2x During Session Anxiety or Irritability: 2=Irritable/Anxious Goose Flesh Skin: 0=Smooth Skin COWS Score: 14 Admission [facility] Chief Complaint: "I want to stop using Heroin completely." Patient is here to Detox from Heroin. Allergies/Adverse Reactions: Allergies Allergy/AdvReac Type Severity Reaction Status Date / Time No Known Allergies Allergy Verified 01/20/18 15:05 History of Present Illness: Patient is a 57 YO male here to Detox from Heroin. Patient has had two previous Detox admissions at [facility] (Last: 11/2017). Longest Period of non-drug use in recent years: 13 years (1986 - 1999). Exam Limitations: No Limitations - Ebola screening Have you traveled outside of the country in the last 21 days: No Have you had contact with anyone from an Ebola affected area: No Have you been sick,other than usual withdrawal symptoms: No Do you have a fever: No - Review of Systems Constitutional: Chills, Diaphoresis, Fever, Loss of Appetite, Malaise, Night Sweats, Changes in sleep, Unintentional Wgt. Loss (Lost approx. 10 lbs. over last 6 months.) EENT: reports: Nose Congestion, Sinus Pressure Respiratory: reports: No Symptoms reported Cardiac: reports: No Symptoms Reported GI: reports: Diarrhea, Nausea, Poor Appetite, Vomiting : reports: No Symptoms Reported Musculoskeletal: reports: Back Pain, Joint Pain, Muscle Pain, Joint Stiffness Integumentary: reports: No Symptoms Reported Neuro: reports: Headache, Tremors Endocrine: reports: No Symptoms Reported Hematology: reports: Anemia (Iron-Deficiency Type. Takes Iron OTC supplement.) Psychiatric: reports: Judgement Intact, Mood/Affect Appropiate, Orientated x3, Anxious, Depressed (On meds.) Other Systems: Reviewed and Negative Patient History - Patient Medical History Hx Anemia: Yes (Ferrous Sulfate.) Hx Asthma: No Hx Chronic Obstructive Pulmonary Disease (COPD): No Hx Cancer: No Hx Cardiac Disorders: No Hx Congestive Heart Failure: No Hx Hypertension: No Hx Hypercholesterolemia: No Hx Pacemaker: No HX Cerebrovascular Accident: No Hx Seizures: No Hx Dementia: No Hx Diabetes: No Hx Gastrointestinal Disorders: No Hx Liver Disease: No Hx Genitourinary Disorders: No Hx Sexually Transmitted Disorders: No Hx Renal Disease (ESRD): No Hx Thyroid Disease: No Hx Human Immunodeficiency Virus (HIV): No (Last tested: 2016: NEGATIVE.) Hx Hepatitis C: Yes (Treated with Harvoni x 3 months (2014), Undetectable VL.) Hx Depression: Yes (On meds.) Hx Suicide Attempt: No (PATIENT DENIES CURRENT SI / HI.) Hx Bipolar Disorder: No Hx Schizophrenia: No Other Medical History: SCIATICA - LEFT SIDE. - Patient Surgical History Past Surgical History: No Hx Neurologic Surgery: No Hx Cataract Extraction: No Hx Cardiac Surgery: No Hx Lung Surgery: No Hx Breast Surgery: No Hx Breast Biopsy: No Hx Abdominal Surgery: No Hx Appendectomy: No Hx Cholecystectomy: No Hx Genitourinary Surgery: No Hx Section: No Hx Orthopedic Surgery: No Other Surgical History: DENIES. Anesthesia Reaction: No - PPD History Previous Implant?: Yes Documented Results: Negative w/proof Implanted On Prior [facility] Admission?: Yes Date: 06/14/17 Results: 0 mm - Reproductive History Patient is a Female of Child Bearing Age (11 -55 yrs old): No (PATIENT IS MALE.) - Smoking Cessation Smoking history: Current every day smoker Have you smoked in the past 12 months: Yes Aproximately how many cigarettes per day: 20 Cigars Per Day: 0 Hx Chewing Tobacco Use: No Initiated information on smoking cessation: Yes 'Breaking Loose' booklet given: 01/20/18 (GIVEN TO PATIENT.) - Substance & Tx. History Hx Alcohol Use: No Hx Substance Use: No Substance Use Type: Heroin Hx Substance Use Treatment: Yes (Two Previous Detox admissions at [facility] (Last: ).) - Substances Abused Heroin Route: Inhalation Frequency: Daily Amount used: 10-12 bags Age of first use: 44 Date of Last Use: 01/19/18 Family Disease History - Family Disease History Family Disease History: CA: Grandparent (Lung), Other: Mother (Arthritis of Shoulder.) Admission Physical Exam BHS - Vital Signs Vital Signs: Vital Signs - 24 hr 01/20/18 14:43 Temperature 98.3 F Pulse Rate 56 L Respiratory 16 Rate Blood Pressure 134/76 - Physical General Appearance: Yes: No Apparent Distress, Nourished, Appropriately Dressed , Tremorous, Anxious HEENTM: Yes: Hearing grossly Normal, Normocephalic, Normal Voice, CARMITA, Pharynx Normal Respiratory: Yes: Chest Non-Tender, Lungs Clear, No Respiratory Distress, No Accessory Muscle Use Neck: Yes: No masses,lesions,Nodules, Supple, Trachea in good position Breast: Yes: Breast Exam Deferred Cardiology: Yes: Regular Rhythm, Regular Rate, S1, S2 Abdominal: Yes: Normal Bowel Sounds, Non Tender, Flat, Soft Genitourinary: Yes: Within Normal Limits Back: Yes: Decreased Range of Motion Musculoskeletal: Yes: Gait Steady, Joint Stiffness Extremities: Yes: Normal Capillary Refill, Tremors Neurological: Yes: Fully Oriented, Alert, Normal Mood/Affect, Normal Response Integumentary: Yes: Normal Color, Dry, Warm Lymphatic: Yes: Within Normal Limits - Diagnostic (1) History of depression Current Visit: Yes Status: Suspected (2) Sciatica, left side Current Visit: Yes Status: Chronic (3) Nicotine dependence Current Visit: Yes Status: Chronic Qualifiers: Nicotine product type: cigarettes Substance use status: uncomplicated Qualified Code(s): F17.210 - Nicotine dependence, cigarettes, uncomplicated (4) Opioid dependence with withdrawal Current Visit: Yes Status: Acute (5) History of iron deficiency anemia Current Visit: Yes Status: Chronic (6) Hepatitis C Current Visit: Yes Status: Resolved Qualifiers: Viral hepatitis chronicity: chronic Hepatic coma status: without hepatic coma Qualified Code(s): B18.2 - Chronic viral hepatitis C Cleared for Admission S - Detox or Rehab [facility] Level of Care: Medically Managed Detox Regimen/Protocol: Methadone [facility] Breath Alcohol Content Breath Alcohol Content: 0 Urine Drug Screen - Results Urine Drug Screen Results: OPI-Opiates
[2018-01-20] MEDS ORDERED: IBUPROFEN 400 MG TABLET (FP) PO PRN (17:26)
[2018-01-20] MEDS ORDERED: LOPERAMIDE HCL 2 MG CAPSULE PO PRN (17:26)
[2018-01-20] MEDS ORDERED: MAGNESIUM CITRATE 300 ML BOTTLE PO PRN (17:26)
[2018-01-20] MEDS ORDERED: ACETAMINOPHEN 325 MG TABLET (FP) PO PRN (17:26)
[2018-01-20] MEDS ORDERED: MENTHOL/PHENOL 1 EACH UD MM PRN (17:26)
[2018-01-20] MEDS ORDERED: MAG HYDROX/AL HYDROX/SIMETH 30 ML UNIT-DOSE CUP PO PRN (17:26)
[2018-01-20] MEDS ORDERED: MAGNESIUM HYDROX 2400MG/30ML ORAL SUSPENSION 30 ML CUP PO PRN (17:26)
[2018-01-20] MEDS ORDERED: guaiFENesin/D-METHORPHAN HB 10 ML UNIT-DOSE CUPS PO PRN (17:26)
[2018-01-20] MEDS ORDERED: METHADONE HCL 10 MG TABLET (FOR DETOX USE ONLY) PO ONE ×2 (18:45→23:00)
[2018-01-20] MEDS: NICOTINE 21 MG/24 HOURS TOPICAL PATCH TD SCH (19:19)
[2018-01-20] MEDS: diazePAM 5 MG TABLET PO PRN (19:20)
[2018-01-20] MEDS: CYCLOBENZAPRINE HCL 10 MG TABLET (FP) PO PRN (22:19)
[2018-01-20] MEDS: THIAMINE HCL 100 MG TABLET (FP) PO SCH (22:19)
[2018-01-20 22:38] LABS: URINE APPEARANCE CLEAR; URINE BILIRUBIN NEGATIVE (<2.0 mg/dL); URINE COLOR YELLOW; URINE GLUCOSE (UA) NEGATIVE (NEGATIVE); URINE KETONE TRACE (NEGATIVE); URINE LEUK ESTERASE NEGATIVE (NEGATIVE); URINE NITRITE NEGATIVE (NEGATIVE); URINE PROTEIN NEGATIVE (NEGATIVE)
--- NOTE | 2018-01-21 09:24 | EKG ---
Test Reason : Blood Pressure : / mmHG Vent. Rate : 053 BPM Atrial Rate : 053 BPM P-R Int : 132 ms QRS Dur : 086 ms QT Int : 416 ms P-R-T Axes : 070 069 063 degrees QTc Int : 390 ms SINUS BRADYCARDIA OTHERWISE NORMAL ECG WHEN COMPARED WITH ECG OF 03-DEC-2017 21:39, NO SIGNIFICANT CHANGE WAS FOUND Confirmed by MARY NUÑEZ MD ([id number]) on 01/21/2018 9:23:29 AM Referred By: Confirmed By:MARY NUÑEZ MD
[2018-01-21 09:54] LABS: HEMATOCRIT 36.3 % (35.4-49); HEMOGLOBIN 12.2 GM/dL (11.7-16.9); MCH 33.1 pg (25.7-33.7); MCHC 33.5 g/dl (32.0-35.9); MEAN CELL VOLUME 98.7 fl (80-96); MEAN PLT VOLUME 9.8 fl (7.5-11.1); PLATELET COUNT 251 K/MM3 (134-434); RBC 3.68 M/mm3 (4.00-5.60); WHITE BLOOD COUNT 12.3 K/mm3 (4.0-10.0)
[2018-01-21] MEDS ORDERED: METHADONE HCL 10 MG TABLET (FOR DETOX USE ONLY) PO ONE (10:00)
[2018-01-21] MEDS: diazePAM 5 MG TABLET PO PRN ×3 (10:12→22:04)
[2018-01-21] MEDS: PRENATAL VITAMINS W/ FOLIC ACID TABLET (FP) PO SCH (10:12)
[2018-01-21] MEDS: NICOTINE 21 MG/24 HOURS TOPICAL PATCH TD SCH (10:13)
[2018-01-21 10:39] LABS: CHLORIDE 105 mmol/L (98-107); POTASSIUM 4.4 mmol/L (3.5-5.1); SODIUM 139 mmol/L (136-145)
[2018-01-21 10:49] LABS: ALBUMIN 3.3 g/dl (3.4-5.0); ALK PHOS 72 U/L (45-117); ANION GAP 7 (8-16); BILIRUBIN,TOTAL 0.2 mg/dL (0.2-1.0); BLOOD UREA NITROGEN 13 mg/dL (7-18); CALCIUM 8.4 mg/dL (8.5-10.1); CO2 27 mmol/L (21-32); CREATININE 0.7 mg/dL (0.7-1.3); GLUCOSE,RANDOM 92 mg/dL (74-106); SGOT/AST 12 U/L (15-37); SGPT/ALT 20 U/L (12-78)
[2018-01-21] MEDS: NICOTINE POLACRILEX 2 MG GUM BC PRN ×2 (13:19→15:41)
--- NOTE | 2018-01-21 16:31 | PN ---
BHS COWS - Scale Resting Pulse: 0= [place] 80 or Below Sweatin= Chills/Flushing Restless Observation: 1= Difficult to Sit Still Pupil Size: 0= Normal to Room Light Bone or Joint Aches: 2= Severe Diffuse Aches Runny Nose/ Eye Tearin= None GI Upset > 30mins: 0= None Tremor Observation of Outstretched Hands: 2= Slight Tremor Visible Yawning Observation: 2= >3x During Session Anxiety or Irritability: 2=Irritable/Anxious Goose Flesh Skin: 3=Piloerection COWS Score: 13 BHS Progress Note (SOAP) Subjective: Body Aches, Fatigue, Sweating, Tremors. Objective: PATIENT A & O X 3, OBSERVED AMBULATING ON UNIT. NO ACUTE DISTRESS. 01/21/18 16:30 Vital Signs Temperature 98 F 01/21/18 14:02 Pulse Rate 72 01/21/18 14:02 Respiratory Rate 18 01/21/18 14:02 Blood Pressure 124/73 01/21/18 14:02 O2 Sat by Pulse Oximetry (%) Laboratory Tests 01/20/18 01/21/18 01/21/18 22:00 08:00 08:00 WBC 12.3 H RBC 3.68 L Hgb 12.2 Hct 36.3 MCV 98.7 H MCH 33.1 MCHC 33.5 RDW 13.0 Plt Count 251 MPV 9.8 Sodium 139 Potassium 4.4 Chloride 105 Carbon Dioxide 27 Anion Gap 7 L BUN 13 D Creatinine 0.7 D Creat Clearance w eGFR > 60 Random Glucose 92 Calcium 8.4 L Total Bilirubin 0.2 D AST 12 L ALT 20 D Alkaline Phosphatase 72 Total Protein 7.0 Albumin 3.3 L Urine Color Yellow Urine Appearance Clear Urine pH 6.0 Ur Specific [place] 1.026 Urine Protein Negative Urine Glucose (UA) Negative Urine Ketones Trace H Urine Blood Negative Urine Nitrite Negative Urine Bilirubin Negative Urine Urobilinogen 2.0 Ur Leukocyte Esterase Negative LABS NOTED. RPR RESULT PENDING. 01/21/18 16:31 Assessment: 01/21/18 16:30 WITHDRAWAL SYMPTOMS. Plan: CONTINUE DETOX.
[2018-01-21] MEDS: THIAMINE HCL 100 MG TABLET (FP) PO SCH (22:03)
[2018-01-22] MEDS: NICOTINE POLACRILEX 2 MG GUM BC PRN ×3 (09:30→18:48)
[2018-01-22] MEDS ORDERED: METHADONE HCL 5 MG TABLET (FOR DETOX USE ONLY) PO ONE (10:00)
[2018-01-22] MEDS: PRENATAL VITAMINS W/ FOLIC ACID TABLET (FP) PO SCH (10:03)
[2018-01-22] MEDS: diazePAM 5 MG TABLET PO PRN ×2 (10:04→14:12)
[2018-01-22] MEDS: NICOTINE 21 MG/24 HOURS TOPICAL PATCH TD SCH (10:04)
--- NOTE | 2018-01-22 10:23 | CONSULT ---
[facility] Psychiatric Consult - Data Date of interview: 01/22/18 Admission source: Self-referred Identifying data: 57 y/o male single, unemployedomn [employer] Substance Abuse History: Here in the unit for Opiods and nicotine use. Please refer to addiction counselor summary for more detailed drug history Medical History: Patient is edentulous, suffered from Iron deficiency anemia, GERD, Hepatitis C, Sciatica Psychiatric History: He reports past psychiatric admission for Major depressive disorder co-occurring with anxiety. He is medicated with Wellbutrin, Depakote, Remeron. He denies feeling depressed or anxious, denies mood swings at this time, denies suicidal ot homicidal ideation Physical/Sexual Abuse/Trauma History: Denied Additional Comment: Patient adamantly refuses neuroleptic medications at this time, he claimed that they are making him too tired, however, his mental stautus is negatibve, free of symptoms at this time. Monitor need for treatment in the unit Mental Status Exam - Mental Status Exam Alert and Oriented to: Place, Person Cognitive Function: Good Patient Appearance: Well Groomed Mood: Euthymic Affect: Appropriate Patient Behavior: Cooperative Speech Pattern: Clear Voice Loudness: Normal Thought Process: Intact Thought Disorder: Not Present Hallucinations: Denies Suicidal Ideation: Denies Homicidal Ideation: Denies Insight/Judgement: Poor Sleep: Fair Appetite: Fair Muscle strength/Tone: Normal Gait/Station: Normal Psychiatric Findings - Problem List ([place] 1, 2,3) (1) Major depression in complete remission Current Visit: Yes Status: Acute (2) Opioid dependence with withdrawal Current Visit: Yes Status: Acute (3) History of iron deficiency anemia Current Visit: Yes Status: Chronic (4) Nicotine dependence Current Visit: Yes Status: Chronic Qualifiers: Nicotine product type: cigarettes Substance use status: uncomplicated Qualified Code(s): F17.210 - Nicotine dependence, cigarettes, uncomplicated (5) Sciatica, left side Current Visit: Yes Status: Chronic (6) Hepatitis C Current Visit: Yes Status: Resolved Qualifiers: Viral hepatitis chronicity: chronic Hepatic coma status: without hepatic coma Qualified Code(s): B18.2 - Chronic viral hepatitis C - Initial Treatment Plan Initial Treatment Plan: Continue current drug treatment with protocol
--- NOTE | 2018-01-22 11:59 | PN ---
BHS COWS - Scale Resting Pulse: 0= [place] 80 or Below Sweatin= Chills/Flushing Restless Observation: 1= Difficult to Sit Still Pupil Size: 1= Pupils >than Normal Bone or Joint Aches: 1= Mild Discomfort Runny Nose/ Eye Tearin= Nasal Congestion GI Upset > 30mins: 0= None Tremor Observation of Outstretched Hands: 1= Tremor [place], Not Seen Yawning Observation: 2= >3x During Session Anxiety or Irritability: 2=Irritable/Anxious Goose Flesh Skin: 0=Smooth Skin COWS Score: 10 BHS Progress Note (SOAP) Subjective: interrupted sleep, body aches , chills Objective: 01/22/18 11:58 Vital Signs Temperature 98.3 F 01/22/18 09:03 Pulse Rate 64 01/22/18 09:03 Respiratory Rate 18 01/22/18 09:03 Blood Pressure 133/76 01/22/18 09:03 O2 Sat by Pulse Oximetry (%) Laboratory Last Values WBC 12.3 K/mm3 (4.0-10.0) H 01/21/18 08:00 RBC 3.68 M/mm3 (4.00-5.60) L 01/21/18 08:00 Hgb 12.2 GM/dL (11.7-16.9) 01/21/18 08:00 Hct 36.3 % (35.4-49) 01/21/18 08:00 MCV 98.7 fl (80-96) H 01/21/18 08:00 MCH 33.1 pg (25.7-33.7) 01/21/18 08:00 MCHC 33.5 g/dl (32.0-35.9) 01/21/18 08:00 RDW 13.0 % (11.9-15.9) 01/21/18 08:00 Plt Count 251 K/MM3 (134-434) 01/21/18 08:00 MPV 9.8 fl (7.5-11.1) 01/21/18 08:00 Sodium 139 mmol/L (136-145) 01/21/18 08:00 Potassium 4.4 mmol/L (3.5-5.1) 01/21/18 08:00 Chloride 105 mmol/L (98-107) 01/21/18 08:00 Carbon Dioxide 27 mmol/L (21-32) 01/21/18 08:00 Anion Gap 7 (8-16) L 01/21/18 08:00 BUN 13 mg/dL (7-18) D 01/21/18 08:00 Creatinine 0.7 mg/dL (0.7-1.3) D 01/21/18 08:00 Creat Clearance w eGFR > 60 (>60) 01/21/18 08:00 Random Glucose 92 mg/dL (74-106) 01/21/18 08:00 Calcium 8.4 mg/dL (8.5-10.1) L 01/21/18 08:00 Total Bilirubin 0.2 mg/dL (0.2-1.0) D 01/21/18 08:00 AST 12 U/L (15-37) L 01/21/18 08:00 ALT 20 U/L (12-78) D 01/21/18 08:00 Alkaline Phosphatase 72 U/L (45-117) 01/21/18 08:00 Total Protein 7.0 g/dl (6.4-8.2) 01/21/18 08:00 Albumin 3.3 g/dl (3.4-5.0) L 01/21/18 08:00 Urine Color Yellow 01/20/18 22:00 Urine Appearance Clear 01/20/18 22:00 Urine pH 6.0 (5.0-8.0) 01/20/18 22:00 Ur Specific [place] 1.026 (1.001-1.035) 01/20/18 22:00 Urine Protein Negative (NEGATIVE) 01/20/18 22:00 Urine Glucose (UA) Negative (NEGATIVE) 01/20/18 22:00 Urine Ketones Trace (NEGATIVE) H 01/20/18 22:00 Urine Blood Negative (NEGATIVE) 01/20/18 22:00 Urine Nitrite Negative (NEGATIVE) 01/20/18 22:00 Urine Bilirubin Negative (<2.0 mg/dL) 01/20/18 22:00 Urine Urobilinogen 2.0 mg/dL (0.2-1.0) 01/20/18 22:00 Ur Leukocyte Esterase Negative (NEGATIVE) 01/20/18 22:00 RPR Titer Nonreactive (NONREACTIVE) 01/21/18 08:00 Assessment: AOX3 in no distress no adventitious breath sounds ambulating in the unit withdrawal sx Plan: increase fluids continue detox continue to monitor
[2018-01-22] MEDS: THIAMINE HCL 100 MG TABLET (FP) PO SCH (22:37)
[2018-01-23] MEDS ORDERED: METHADONE HCL 5 MG TABLET (FOR DETOX USE ONLY) PO ONE (10:00)
[2018-01-23] MEDS: PRENATAL VITAMINS W/ FOLIC ACID TABLET (FP) PO SCH (10:06)
[2018-01-23] MEDS: NICOTINE 21 MG/24 HOURS TOPICAL PATCH TD SCH (10:06)
--- NOTE | 2018-01-23 11:26 | PN ---
BHS Progress Note (SOAP) Subjective: ANXIETY,SWEATS, PT STATES "LITTLE SORE ALL OVER". Objective: 01/23/18 11:25 Vital Signs 01/23/18 01/23/18 01/23/18 03:30 06:08 06:30 Temperature 98.2 F Pulse Rate 59 L 59 L Respiratory 18 16 16 Rate Blood Pressure 139/84 01/23/18 09:00 Temperature 97.4 F L Pulse Rate 62 Respiratory 18 Rate Blood Pressure 104/67 Laboratory Tests 01/20/18 01/21/18 01/21/18 22:00 08:00 08:00 WBC 12.3 H RBC 3.68 L Hgb 12.2 Hct 36.3 MCV 98.7 H MCH 33.1 MCHC 33.5 RDW 13.0 Plt Count 251 MPV 9.8 Sodium 139 Potassium 4.4 Chloride 105 Carbon Dioxide 27 Anion Gap 7 L BUN 13 D Creatinine 0.7 D Creat Clearance w eGFR > 60 Random Glucose 92 Calcium 8.4 L Total Bilirubin 0.2 D AST 12 L ALT 20 D Alkaline Phosphatase 72 Total Protein 7.0 Albumin 3.3 L Urine Color Yellow Urine Appearance Clear Urine pH 6.0 Ur Specific [place] 1.026 Urine Protein Negative Urine Glucose (UA) Negative Urine Ketones Trace H Urine Blood Negative Urine Nitrite Negative Urine Bilirubin Negative Urine Urobilinogen 2.0 Ur Leukocyte Esterase Negative RPR Titer 01/21/18 08:00 WBC RBC Hgb Hct MCV MCH MCHC RDW Plt Count MPV Sodium Potassium Chloride Carbon Dioxide Anion Gap BUN Creatinine Creat Clearance w eGFR Random Glucose Calcium Total Bilirubin AST ALT Alkaline Phosphatase Total Protein Albumin Urine Color Urine Appearance Urine pH Ur Specific [place] Urine Protein Urine Glucose (UA) Urine Ketones Urine Blood Urine Nitrite Urine Bilirubin Urine Urobilinogen Ur Leukocyte Esterase RPR Titer Nonreactive Assessment: 01/23/18 11:26 WITHDRAWAL SX Plan: CONTINUE DETOX MOTRIN PRN
[2018-01-23] MEDS: NICOTINE POLACRILEX 2 MG GUM BC PRN ×2 (12:35→17:07)
[2018-01-23] MEDS: THIAMINE HCL 100 MG TABLET (FP) PO SCH (22:16)
[2018-01-24] MEDS: NICOTINE POLACRILEX 2 MG GUM BC PRN ×5 (06:03→18:21)
--- NOTE | 2018-01-24 09:41 | PN ---
BHS Progress Note (SOAP) Subjective: ALERT O X 3. REPORTS DETOX PROCEEDING WELL. LAYING IN BED WITH NAD. Objective: 01/24/18 09:41 Vital Signs 01/24/18 01/24/18 03:26 05:45 Temperature 97.5 F L Pulse Rate 61 Respiratory 16 16 Rate Blood Pressure 107/68 Laboratory Tests 01/20/18 01/21/18 01/21/18 22:00 08:00 08:00 WBC 12.3 H RBC 3.68 L Hgb 12.2 Hct 36.3 MCV 98.7 H MCH 33.1 MCHC 33.5 RDW 13.0 Plt Count 251 MPV 9.8 Sodium 139 Potassium 4.4 Chloride 105 Carbon Dioxide 27 Anion Gap 7 L BUN 13 D Creatinine 0.7 D Creat Clearance w eGFR > 60 Random Glucose 92 Calcium 8.4 L Total Bilirubin 0.2 D AST 12 L ALT 20 D Alkaline Phosphatase 72 Total Protein 7.0 Albumin 3.3 L Urine Color Yellow Urine Appearance Clear Urine pH 6.0 Ur Specific [place] 1.026 Urine Protein Negative Urine Glucose (UA) Negative Urine Ketones Trace H Urine Blood Negative Urine Nitrite Negative Urine Bilirubin Negative Urine Urobilinogen 2.0 Ur Leukocyte Esterase Negative RPR Titer 01/21/18 08:00 WBC RBC Hgb Hct MCV MCH MCHC RDW Plt Count MPV Sodium Potassium Chloride Carbon Dioxide Anion Gap BUN Creatinine Creat Clearance w eGFR Random Glucose Calcium Total Bilirubin AST ALT Alkaline Phosphatase Total Protein Albumin Urine Color Urine Appearance Urine pH Ur Specific [place] Urine Protein Urine Glucose (UA) Urine Ketones Urine Blood Urine Nitrite Urine Bilirubin Urine Urobilinogen Ur Leukocyte Esterase RPR Titer Nonreactive Assessment: 01/24/18 09:42 WITHDRAWAL SX Plan: CONTINUE DETOX
[2018-01-24] MEDS: PRENATAL VITAMINS W/ FOLIC ACID TABLET (FP) PO SCH (09:55)
[2018-01-24] MEDS: NICOTINE 21 MG/24 HOURS TOPICAL PATCH TD SCH (09:55)
[2018-01-24] MEDS ORDERED: METHADONE HCL 10 MG TABLET (FOR DETOX USE ONLY) PO ONE (10:00)
[2018-01-24] MEDS: hydrOXYzine PAMOATE 50 MG CAPSULE (FP) PO PRN ×2 (10:08→15:08)
[2018-01-24] MEDS: THIAMINE HCL 100 MG TABLET (FP) PO SCH (22:44)
[2018-01-25] MEDS ORDERED: METHADONE HCL 5 MG TABLET (FOR DETOX USE ONLY) PO ONE (06:00)
[2018-01-25] MEDS: NICOTINE POLACRILEX 2 MG GUM BC PRN ×4 (07:01→16:44)
[2018-01-25] MEDS: CYCLOBENZAPRINE HCL 10 MG TABLET (FP) PO PRN (07:04)
[2018-01-25] MEDS: PRENATAL VITAMINS W/ FOLIC ACID TABLET (FP) PO SCH (09:14)
[2018-01-25] MEDS: NICOTINE 21 MG/24 HOURS TOPICAL PATCH TD SCH (09:14)
--- NOTE | 2018-01-25 10:15 | PN ---
BHS Progress Note (SOAP) Subjective: DETOX COMPLETED. ALERT O X 3. PT EAGER TO GO TO REHAB. REFERRED TO [facility] OR [facility]. PT AWAITING BED AVAILABILITY FOR TOMORROW. PT 'S COUNSELOR, OLIVA COUGHLIN REQUESTS TO HOLD PT TILL TOMORROW WHEN REHAB BED MIGHT BE AVAILABLE. Objective: 01/25/18 10:14 Vital Signs 01/25/18 01/25/18 01/25/18 03:30 06:22 09:07 Temperature 97.6 F 96.2 F L Pulse Rate 62 88 Respiratory 18 18 18 Rate Blood Pressure 109/67 117/74 Laboratory Tests 01/20/18 01/21/18 01/21/18 22:00 08:00 08:00 WBC 12.3 H RBC 3.68 L Hgb 12.2 Hct 36.3 MCV 98.7 H MCH 33.1 MCHC 33.5 RDW 13.0 Plt Count 251 MPV 9.8 Sodium 139 Potassium 4.4 Chloride 105 Carbon Dioxide 27 Anion Gap 7 L BUN 13 D Creatinine 0.7 D Creat Clearance w eGFR > 60 Random Glucose 92 Calcium 8.4 L Total Bilirubin 0.2 D AST 12 L ALT 20 D Alkaline Phosphatase 72 Total Protein 7.0 Albumin 3.3 L Urine Color Yellow Urine Appearance Clear Urine pH 6.0 Ur Specific [place] 1.026 Urine Protein Negative Urine Glucose (UA) Negative Urine Ketones Trace H Urine Blood Negative Urine Nitrite Negative Urine Bilirubin Negative Urine Urobilinogen 2.0 Ur Leukocyte Esterase Negative RPR Titer 01/21/18 08:00 WBC RBC Hgb Hct MCV MCH MCHC RDW Plt Count MPV Sodium Potassium Chloride Carbon Dioxide Anion Gap BUN Creatinine Creat Clearance w eGFR Random Glucose Calcium Total Bilirubin AST ALT Alkaline Phosphatase Total Protein Albumin Urine Color Urine Appearance Urine pH Ur Specific [place] Urine Protein Urine Glucose (UA) Urine Ketones Urine Blood Urine Nitrite Urine Bilirubin Urine Urobilinogen Ur Leukocyte Esterase RPR Titer Nonreactive Assessment: 01/25/18 10:14 MEDICALLY STABLE Plan: MAY D/C IN AM AND FOLLOW UP AT [facility] OR [facility] IF BED AVAILABLE
--- NOTE | 2018-01-25 10:19 | DS ---
[facility] Detox Discharge Summary Admission Date: 01/20/18 Discharge Date: 01/26/18 - History Present History: Opioid Dependence Additional Comments: DETOX COMPLETED. ALERT O X 3, NAD. PT REPORTS PRIMARY CARE WITH DR. GOTTI AND DR. DEAL IN [place], [place]. Pertinent Past History: PLEASE SEE DX BELOW - Physical Exam Results Vital Signs: Vital Signs Temperature 96.2 F L 01/25/18 09:07 Pulse Rate 88 01/25/18 09:07 Respiratory Rate 18 01/25/18 09:07 Blood Pressure 117/74 01/25/18 09:07 O2 Sat by Pulse Oximetry (%) Pertinent Admission Physical Exam Findings: WITHDRAWAL SX Laboratory Tests 01/20/18 01/21/18 01/21/18 22:00 08:00 08:00 WBC 12.3 H RBC 3.68 L Hgb 12.2 Hct 36.3 MCV 98.7 H MCH 33.1 MCHC 33.5 RDW 13.0 Plt Count 251 MPV 9.8 Sodium 139 Potassium 4.4 Chloride 105 Carbon Dioxide 27 Anion Gap 7 L BUN 13 D Creatinine 0.7 D Creat Clearance w eGFR > 60 Random Glucose 92 Calcium 8.4 L Total Bilirubin 0.2 D AST 12 L ALT 20 D Alkaline Phosphatase 72 Total Protein 7.0 Albumin 3.3 L Urine Color Yellow Urine Appearance Clear Urine pH 6.0 Ur Specific [place] 1.026 Urine Protein Negative Urine Glucose (UA) Negative Urine Ketones Trace H Urine Blood Negative Urine Nitrite Negative Urine Bilirubin Negative Urine Urobilinogen 2.0 Ur Leukocyte Esterase Negative RPR Titer 01/21/18 08:00 WBC RBC Hgb Hct MCV MCH MCHC RDW Plt Count MPV Sodium Potassium Chloride Carbon Dioxide Anion Gap BUN Creatinine Creat Clearance w eGFR Random Glucose Calcium Total Bilirubin AST ALT Alkaline Phosphatase Total Protein Albumin Urine Color Urine Appearance Urine pH Ur Specific [place] Urine Protein Urine Glucose (UA) Urine Ketones Urine Blood Urine Nitrite Urine Bilirubin Urine Urobilinogen Ur Leukocyte Esterase RPR Titer Nonreactive - Treatment Hospital Course: Detox Protocol Followed, Detoxed Safely, Responded well, Discharged Condition Good, Rehab Referral Accepted Patient has Accepted a Re[facility] Referral [facility] - Medication Discharge Medications: Ambulatory Orders Trazodone HCl 150 mg PO HS 12/03/17 Mirtazapine [Remeron -] 15 mg PO HS #30 tablet 12/04/17 - Diagnosis (1) GERD (gastroesophageal reflux disease) Current Visit: Yes Status: Chronic Qualifiers: Esophagitis presence: esophagitis presence not specified Qualified Code(s) : K21.9 - Gastro-esophageal reflux disease without esophagitis (2) Hx of hepatitis C Current Visit: Yes Status: Resolved (3) Opioid dependence with withdrawal Current Visit: Yes Status: Acute (4) History of iron deficiency anemia Current Visit: Yes Status: Suspected (5) Nicotine dependence Current Visit: Yes Status: Acute Qualifiers: Nicotine product type: cigarettes Substance use status: in withdrawal Qualified Code(s): F17.213 - Nicotine dependence, cigarettes, with withdrawal (6) Sciatica, left side Current Visit: Yes Status: Chronic - AMA Did Patient Leave Against Medical Advice: No
[2018-01-25] MEDS: hydrOXYzine PAMOATE 50 MG CAPSULE (FP) PO PRN (16:43)
[2018-01-25] MEDS: THIAMINE HCL 100 MG TABLET (FP) PO SCH (22:35)
[2018-01-26] MEDS: NICOTINE POLACRILEX 2 MG GUM BC PRN ×4 (06:39→13:19)
--- NOTE | 2018-01-26 09:56 | PN ---
[facility] Progress Note Note: PT IS ALERT O X 3. NAD. ANTICIPATES TO GO INTO REHAB TODAY. BED AVAILABLE ON [address] TODAY. Vital Signs 01/26/18 01/26/18 06:18 09:31 Temperature 97.8 F 99.2 F Pulse Rate 62 73 Respiratory 18 18 Rate Blood Pressure 117/73 121/78 Laboratory Tests 01/20/18 01/21/18 01/21/18 22:00 08:00 08:00 WBC 12.3 H RBC 3.68 L Hgb 12.2 Hct 36.3 MCV 98.7 H MCH 33.1 MCHC 33.5 RDW 13.0 Plt Count 251 MPV 9.8 Sodium 139 Potassium 4.4 Chloride 105 Carbon Dioxide 27 Anion Gap 7 L BUN 13 D Creatinine 0.7 D Creat Clearance w eGFR > 60 Random Glucose 92 Calcium 8.4 L Total Bilirubin 0.2 D AST 12 L ALT 20 D Alkaline Phosphatase 72 Total Protein 7.0 Albumin 3.3 L Urine Color Yellow Urine Appearance Clear Urine pH 6.0 Ur Specific [place] 1.026 Urine Protein Negative Urine Glucose (UA) Negative Urine Ketones Trace H Urine Blood Negative Urine Nitrite Negative Urine Bilirubin Negative Urine Urobilinogen 2.0 Ur Leukocyte Esterase Negative RPR Titer 01/21/18 08:00 WBC RBC Hgb Hct MCV MCH MCHC RDW Plt Count MPV Sodium Potassium Chloride Carbon Dioxide Anion Gap BUN Creatinine Creat Clearance w eGFR Random Glucose Calcium Total Bilirubin AST ALT Alkaline Phosphatase Total Protein Albumin Urine Color Urine Appearance Urine pH Ur Specific [place] Urine Protein Urine Glucose (UA) Urine Ketones Urine Blood Urine Nitrite Urine Bilirubin Urine Urobilinogen Ur Leukocyte Esterase RPR Titer Nonreactive MEDICALLY STABLE TRANSFER PT TO [facility] TODAY.
[2018-01-26] MEDS: NICOTINE 21 MG/24 HOURS TOPICAL PATCH TD SCH (10:03)
[2018-01-26] MEDS: PRENATAL VITAMINS W/ FOLIC ACID TABLET (FP) PO SCH (10:03)
[2018-01-26] MEDS: hydrOXYzine PAMOATE 50 MG CAPSULE (FP) PO PRN (13:17)
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
--- NOTE | 2018-01-26 14:38 | PN ---
S Progress Note Note: Vital Signs Temperature 98.1 F 01/26/18 13:50 Pulse Rate 67 01/26/18 13:50 Respiratory Rate 18 01/26/18 13:50 Blood Pressure 125/83 01/26/18 13:50 O2 Sat by Pulse Oximetry (%) Patient requested increase in nicotine gum from 2mg to 4mg d/t nicotine craving. order changed as patient request. Continue to monitor.
[2018-01-26] MEDS: NICOTINE POLACRILEX 4 MG GUM BUC PRN ×2 (15:47→18:25)
[2018-01-26] MEDS: THIAMINE HCL 100 MG TABLET (FP) PO SCH (21:56)
[2018-01-26] MEDS: MIRTAZAPINE 15 MG TABLET (FP) PO SCH (21:56)
[2018-01-27] MEDS: NICOTINE POLACRILEX 4 MG GUM BUC PRN ×4 (09:00→20:08)
[2018-01-27] MEDS: NICOTINE 21 MG/24 HOURS TOPICAL PATCH TD SCH (09:47)
[2018-01-27] MEDS: PRENATAL VITAMINS W/ FOLIC ACID TABLET (FP) PO SCH (09:47)
[2018-01-27] MEDS: MIRTAZAPINE 15 MG TABLET (FP) PO SCH (21:38)
[2018-01-27] MEDS: CYCLOBENZAPRINE HCL 10 MG TABLET (FP) PO PRN (21:39)
[2018-01-27] MEDS: THIAMINE HCL 100 MG TABLET (FP) PO SCH (21:39)
[2018-01-28] MEDS: NICOTINE 21 MG/24 HOURS TOPICAL PATCH TD SCH (10:45)
[2018-01-28] MEDS: PRENATAL VITAMINS W/ FOLIC ACID TABLET (FP) PO SCH (10:45)
[2018-01-28] MEDS: NICOTINE POLACRILEX 4 MG GUM BUC PRN ×5 (11:27→23:03)
[2018-01-28] MEDS: CYCLOBENZAPRINE HCL 10 MG TABLET (FP) PO PRN ×2 (14:43→21:16)
[2018-01-28] MEDS: MIRTAZAPINE 15 MG TABLET (FP) PO SCH (21:16)
[2018-01-28] MEDS: THIAMINE HCL 100 MG TABLET (FP) PO SCH (21:16)
[2018-01-29] MEDS: NICOTINE POLACRILEX 4 MG GUM BUC PRN ×2 (08:28→13:42)
[2018-01-29] MEDS: NICOTINE 21 MG/24 HOURS TOPICAL PATCH TD SCH (10:22)
[2018-01-29] MEDS: PRENATAL VITAMINS W/ FOLIC ACID TABLET (FP) PO SCH (10:22)
[2018-01-29] MEDS: THIAMINE HCL 100 MG TABLET (FP) PO SCH (22:09)
[2018-01-29] MEDS: MIRTAZAPINE 15 MG TABLET (FP) PO SCH (22:09)
[2018-01-30] MEDS: NICOTINE POLACRILEX 4 MG GUM BUC PRN ×6 (08:49→21:16)
[2018-01-30] MEDS: PRENATAL VITAMINS W/ FOLIC ACID TABLET (FP) PO SCH (10:35)
[2018-01-30] MEDS: NICOTINE 21 MG/24 HOURS TOPICAL PATCH TD SCH (10:36)
[2018-01-30] MEDS: THIAMINE HCL 100 MG TABLET (FP) PO SCH (21:16)
[2018-01-30] MEDS: MIRTAZAPINE 15 MG TABLET (FP) PO SCH (21:16)
[2018-01-31] MEDS: NICOTINE POLACRILEX 4 MG GUM BUC PRN ×6 (06:52→21:32)
[2018-01-31] MEDS: NICOTINE 21 MG/24 HOURS TOPICAL PATCH TD SCH (10:23)
[2018-01-31] MEDS: PRENATAL VITAMINS W/ FOLIC ACID TABLET (FP) PO SCH (10:23)
[2018-01-31] MEDS: THIAMINE HCL 100 MG TABLET (FP) PO SCH (21:32)
[2018-01-31] MEDS: MIRTAZAPINE 15 MG TABLET (FP) PO SCH (21:32)
[2018-01-31] MEDS: MELATONIN 5 MG TABLETS PO PRN (22:35)
[2018-02-01] MEDS: PRENATAL VITAMINS W/ FOLIC ACID TABLET (FP) PO SCH (09:44)
[2018-02-01] MEDS: NICOTINE 21 MG/24 HOURS TOPICAL PATCH TD SCH (09:45)
[2018-02-01] MEDS: NICOTINE POLACRILEX 4 MG GUM BUC PRN ×5 (09:45→21:18)
[2018-02-01] MEDS: MELATONIN 5 MG TABLETS PO PRN (21:17)
[2018-02-01] MEDS: THIAMINE HCL 100 MG TABLET (FP) PO SCH (21:17)
[2018-02-01] MEDS: MIRTAZAPINE 15 MG TABLET (FP) PO SCH (21:17)
[2018-02-01] MEDS: hydrOXYzine PAMOATE 50 MG CAPSULE (FP) PO PRN (21:17)
[2018-02-02] MEDS: PRENATAL VITAMINS W/ FOLIC ACID TABLET (FP) PO SCH (09:47)
[2018-02-02] MEDS: hydrOXYzine PAMOATE 50 MG CAPSULE (FP) PO PRN ×2 (09:48→15:47)
[2018-02-02] MEDS: NICOTINE 21 MG/24 HOURS TOPICAL PATCH TD SCH (09:48)
[2018-02-02] MEDS: NICOTINE POLACRILEX 4 MG GUM BUC PRN ×4 (09:48→17:09)
[2018-02-02] MEDS: THIAMINE HCL 100 MG TABLET (FP) PO SCH (22:03)
[2018-02-02] MEDS: MIRTAZAPINE 15 MG TABLET (FP) PO SCH (22:03)
[2018-02-03] MEDS: NICOTINE POLACRILEX 4 MG GUM BUC PRN ×5 (07:00→21:23)
[2018-02-03] MEDS: PRENATAL VITAMINS W/ FOLIC ACID TABLET (FP) PO SCH (09:58)
[2018-02-03] MEDS: NICOTINE 21 MG/24 HOURS TOPICAL PATCH TD SCH (09:59)
[2018-02-03] MEDS: THIAMINE HCL 100 MG TABLET (FP) PO SCH (21:22)
[2018-02-03] MEDS: MIRTAZAPINE 15 MG TABLET (FP) PO SCH (21:22)
[2018-02-04] MEDS: PRENATAL VITAMINS W/ FOLIC ACID TABLET (FP) PO SCH (09:28)
[2018-02-04] MEDS: NICOTINE POLACRILEX 4 MG GUM BUC PRN ×5 (09:29→21:30)
[2018-02-04] MEDS: NICOTINE 21 MG/24 HOURS TOPICAL PATCH TD SCH (09:29)
[2018-02-04] MEDS: hydrOXYzine PAMOATE 50 MG CAPSULE (FP) PO PRN ×3 (09:36→21:29)
[2018-02-04] MEDS: MIRTAZAPINE 15 MG TABLET (FP) PO SCH (21:28)
[2018-02-04] MEDS: THIAMINE HCL 100 MG TABLET (FP) PO SCH (21:28)
[2018-02-05] MEDS: NICOTINE POLACRILEX 4 MG GUM BUC PRN ×5 (06:01→21:53)
[2018-02-05] MEDS: hydrOXYzine PAMOATE 50 MG CAPSULE (FP) PO PRN (09:55)
[2018-02-05] MEDS: PRENATAL VITAMINS W/ FOLIC ACID TABLET (FP) PO SCH (09:56)
[2018-02-05] MEDS: NICOTINE 21 MG/24 HOURS TOPICAL PATCH TD SCH (10:41)
[2018-02-05] MEDS: P-EPHED 60MG/TRIPROLIDI 2.5MG TABLET PO PRN ×2 (15:22→21:54)
[2018-02-05] MEDS: MIRTAZAPINE 15 MG TABLET (FP) PO SCH (23:01)
[2018-02-05] MEDS: THIAMINE HCL 100 MG TABLET (FP) PO SCH (23:01)
[2018-02-06] MEDS: P-EPHED 60MG/TRIPROLIDI 2.5MG TABLET PO PRN (10:10)
[2018-02-06] MEDS: PRENATAL VITAMINS W/ FOLIC ACID TABLET (FP) PO SCH (10:10)
[2018-02-06] MEDS: NICOTINE 21 MG/24 HOURS TOPICAL PATCH TD SCH (10:11)
[2018-02-06] MEDS: NICOTINE POLACRILEX 4 MG GUM BUC PRN ×2 (10:11→12:48)
--- NOTE | 2018-02-06 14:00 | PN ---
Psychiatric Progress Note Vital Signs: Vital Signs Period Temp Pulse Resp BP Sys/Pollock Pulse Ox Last 24 Hr 98.8 F-99.9 F 68-73 18-18 123-126/79-96 Date of Session: 02/06/18 Chief Complaint:: Discharge Note HPI: Patient addressing Opioid Dependence comorbid with Nicotine Dependence, MDD in remission, Substance-Induced Mood Disorder, Substance-Induced Sleep Disorder ROS: GERD, Sciatica, Hep C, Anemia, Low back pain Current Medications: Active Medications Generic Name Dose Route Start Last Admin Trade Name Freq PRN Reason Stop Dose Admin Al Hydroxide/Mg Hydroxide 30 ml 01/20/18 17:26 01/29/18 15:19 Mylanta Oral Suspension - PO 30 ml Q6H PRN Administration DYSPEPSIA Cyclobenzaprine HCl 10 mg 01/20/18 17:29 01/28/18 21:16 Flexeril - PO 10 mg TID PRN Administration MUSCLE SPASMS Eucalyptus/Menthol/Phenol/Sorbitol 1 each 01/20/18 17:26 Cepastat Lozenge - MM Q4H PRN SORE THROAT Guaifenesin 10 ml 01/20/18 17:26 Robitussin Dm - PO Q6H PRN COUGH Hydroxyzine Pamoate 50 mg 01/24/18 09:54 02/05/18 09:55 Vistaril - PO 50 mg Q4H PRN Administration FOR ITCHING Ibuprofen 400 mg 01/20/18 17:26 01/27/18 14:08 Motrin - PO 400 mg Q6H PRN Administration PAIN LEVEL 4-6 Loperamide HCl 4 mg 01/20/18 17:26 Imodium - PO Q6H PRN DIARRHEA Magnesium Citrate 300 ml 01/20/18 17:26 Citroma - PO Q48H PRN CONSTIPATION Magnesium Hydroxide 30 ml 01/20/18 17:26 Milk Of Magnesia - PO DAILY PRN CONSTIPATION Melatonin 5 mg 01/20/18 22:00 02/01/18 21:17 Melatonin PO 5 mg HS PRN Administration INSOMNIA Mirtazapine 15 mg 01/26/18 22:00 02/05/18 23:01 Remeron - PO 15 mg HS MARYJANE Administration Nicotine 21 mg 01/20/18 18:45 02/06/18 10:11 Nicoderm Patch - TD Not Given DAILY MARYJANE Nicotine Polacrilex 4 mg 01/26/18 14:37 02/06/18 12:48 Nicorette Gum - BUC 4 mg Q2H PRN Administration NICOTINE REPLACEMENT RX Multivit/Folic Acid/Iron 1 tab 01/21/18 10:00 02/06/18 10:10 Vitamins (Sjr) - PO 1 tab DAILY MARYJANE Administration Pseudoephedrine/Triprolidine 1 combo 01/20/18 17:26 02/06/18 10:10 Actifed - PO 1 combo TID PRN Administration NASAL CONGESTION Thiamine HCl 100 mg 01/20/18 22:00 02/05/18 23:01 Vitamin B1 - PO 100 mg HS MARYJANE Administration Current Side Effect: No Lab tests ordered: Yes Lab tests reviewed: Yes Provider note:: Patient will complete this program on 02/07/18. He has met his treatment goals and will continue to address his issues in outpatient treatment at [facility] at [address] [place] [address]. Told business writer that from his participation in this program, he has learned the importance of making meetings and have a sponsor as well as staying away from people. places and things. He responded well to Remeron 15 mg po HS. Told business writer that he has ample supply of that medication and does not need script. He is stable for discharge on 02/07/18 Total face to face time:: 35 Mental Status Exam - Mental Status Exam Alert and Oriented to: Time, Place, Person Cognitive Function: Fair Patient Appearance: Well Groomed Mood: Hopeful, Euthymic Affect: Appropriate Patient Behavior: Cooperative Speech Pattern: Clear Voice Loudness: Moderately Soft/Quiet Thought Process: Intact, Goal Oriented Thought Disorder: Not Present Hallucinations: Denies Suicidal Ideation: Denies Homicidal Ideation: Denies Insight/Judgement: Fair Sleep: Fair Appetite: Good Muscle strength/Tone: Normal Gait/Station: Normal Psychiatric Treatment Plan - Problem List (1) Opioid dependence Current Visit: Yes (2) Nicotine dependence Current Visit: Yes Qualifiers: Nicotine product type: cigarettes Substance use status: in withdrawal Qualified Code(s): F17.213 - Nicotine dependence, cigarettes, with withdrawal (3) Major depression in complete remission Current Visit: Yes (4) Substance-induced anxiety disorder Current Visit: Yes (5) Substance-induced sleep disorder Current Visit: Yes (6) GERD (gastroesophageal reflux disease) Current Visit: Yes Qualifiers: Esophagitis presence: esophagitis presence not specified Qualified Code(s) : K21.9 - Gastro-esophageal reflux disease without esophagitis (7) Sciatica, left side Current Visit: Yes (8) History of iron deficiency anemia Current Visit: Yes (9) Hx of hepatitis C Current Visit: Yes (10) Low back pain Current Visit: No Qualifiers: Chronicity: unspecified Back pain laterality: unspecified Sciatica presence: unspecified whether sciatica present Qualified Code(s): M54.5 - Low back pain Initial treatment plan: Patient will be discharged tomorrow and referred to [facility] in [place], [place] for outpatient treatment
[2018-02-06] MEDS: MIRTAZAPINE 15 MG TABLET (FP) PO SCH (21:14)
[2018-02-06] MEDS: THIAMINE HCL 100 MG TABLET (FP) PO SCH (21:14)
[2018-02-07 07:01] VITALS: BP 137/91; PULSE 75; TEMP 98.1
== END 2018-02-07 08:26 | disposition home or self-care (01) | DRG 895 ==
LOC: YASAS 14:25 → Y3N 18:14 → Y3W 01-26 12:57
PROVIDERS: ADMIT Family Medicine Addiction Medicine; ATTEND Psychiatry & Neurology Psychiatry
PROC: HZ2ZZZZ Detoxification Services for Substance Abuse Treatment (ICD-10-PCS; 2018-01-20)
PROC: HZ42ZZZ Group Counseling for Substance Abuse Treatment, Cognitive-Behavioral (ICD-10-PCS; principal; 2018-01-25)
DX: F11.20 Opioid dependence, uncomplicated (principal); F19.280 Other psychoactive substance dependence with psychoactive substance-induced anxiety disorder; F19.282 Other psychoactive substance dependence with psychoactive substance-induced sleep disorder; F32.5 Major depressive disorder, single episode, in full remission; K21.9 Gastro-esophageal reflux disease without esophagitis; D50.8 Other iron deficiency anemias; B18.2 Chronic viral hepatitis C; M54.5 Low back pain; M54.32 Sciatica, left side
CPT/HCPCS: 36415; 80053; 81003; 85027; 86593; 93005; 93010